=== PATIENT | male | born 1940 | race Caucasian/White ===

== ENCOUNTER 2016-10-20 12:54 | Inpatient (IN) ==
[2016-10-20 14:23] LABS: MANUAL DIFF NEEDED? NO
[2016-10-20 14:31] LABS: BASO% 0.7 % (0.0-0.8); EOS# 0.46 X1000 (0.0-0.7); EOS% 7.6 % (0.0-10.0); HEMATOCRIT 34.3 % (42.0-52.0); HEMOGLOBIN 11.7 g/dL (14.0-18.0); LYMPH# 0.77 X1000 (1.2-3.4); LYMPH% 12.8 % (20.5-51.1); MCH 32.6 PG (27-31); MCHC 34.1 g/dL (33-37); MCV 95.5 FL (81-99); MONO# 0.79 X1000 (0.11-0.59); MONO% 13.1 % (1.7-9.3); MPV 9.3 FL (7.4-10.4); NEUT% 65.8 % (42.2-75.2); PLT 219 X1000 (130-400); RBC 3.59 XMIL (4.7-6.1)
[2016-10-20 14:40] LABS: AGAP 11; ALBUMIN 3.8 g/dL (3.5-5.0); ALKALINE PHOSPHATASE 61 U/L (32-122); BUN 9 mg/dL (8-22); CALCIUM 9.1 mg/dL (8.8-10.2); CHLORIDE 98 mmol/L (98-107); COSMO 270; GOT 12 U/L (10-34); GPT 12 U/L (10-44); POTASSIUM 3.7 mmol/L (3.5-5.1); SODIUM 135 mmol/L (136-145); TCO2 26 mmol/L (25-35); TOTAL BILIRUBIN 0.44 mg/dL (0.20-1.00); TOTAL PROTEIN 7.2 g/dL (6.3-8.3)
[2016-10-20 14:41] LABS: INR 2.81; PROTIME 30.1 Seconds (9.2-11.7); PTT 71.3 Seconds (22.0-36.0)
[2016-10-20] MEDS ORDERED: VITAMIN K 10 MG in NS 50 ML IV ONE (15:50)
--- NOTE | 2016-10-20 15:53 | PROVIDER DOCUMENTATION ---
HPI-Abdominal Pain/GI Problem - General Chief Complaint: GI Bleed Stated Complaint: RECTAL BLEEDING Time Seen by Provider: 10/20/16 14:40 Source: patient, family Allergies/Adverse Reactions: Patient Allergies Allergy/AdvReac Type Severity Reaction Status Date / Time clarithromycin [From Biaxin] Allergy Mild RASH Verified 10/20/16 13:22 Sulfa (Sulfonamide Allergy Mild RASH Verified 10/20/16 13:22 Antibiotics) Home Medications: Home Medication List Medication Instructions Recorded Confirmed Last Taken Type Ascorbate Calcium [Vitamin C] 1,000 mg PO QAM 10/01/16 10/20/16 10/20/16 History Cholecalciferol (Vit D3) [Vitamin 2,000 unit PO QAM 10/01/16 10/20/16 10/20/16 History D] Dexamethasone 2 mg PO BID 10/01/16 10/01/16 10/01/16 09:00 History Esomeprazole [Nexium] 40 mg PO QAM 10/01/16 10/20/16 10/20/16 History Hydromorphone [Dilaudid] 4 mg PO Q8H PRN 10/01/16 10/20/16 10/20/16 History Levothyroxine Sodium [Synthroid] 100 microgm PO QAM 10/01/16 10/20/16 10/20/16 History Mesalamine D.r. [Asacol Hd] 800 mg PO BID 10/01/16 10/20/16 10/20/16 History Multivitamins/Minerals [Centrum 1 each PO QAM 10/01/16 10/20/16 10/20/16 History Silver] Pembrolizumab [Keytruda] 0 mg IV DIRECTED 10/01/16 10/20/16 10/20/16 History Potassium Chloride 10 meq PO QAM 10/01/16 10/20/16 10/20/16 History Warfarin Sodium 5 mg PO QPM 10/01/16 10/20/16 10/20/16 History Donepezil [Aricept] 5 mg PO DAILY 10/20/16 10/20/16 10/20/16 History Hydromorphone HCl [Dilaudid] 4 mg PO Q6H PRN PRN 10/20/16 10/20/16 10/20/16 History Solifenacin Succinate [Vesicare] 5 mg PO DAILY 10/20/16 10/20/16 10/20/16 History - History of Present Illness-ABD Nature of Presenting Problems: patient is a 76 y/o M that presents with lower GI bleed that began 24 hours per family. Family reports initially large red bowel movement 24 hours ago in which the bleeding is starting to slow down. patient was recently placed on Aricept for dementia and stopped it due to side effect being bleeding. He is on Warfin for previous Saddle PE years ago. He is on Chemo Abdominal Pain Onset Location: reports: generalized abdomen Pain Radiation: reports: no radiation Quality of Pain: reports: aching, cramping Severity in ED: reports: moderate Onset/Duration: reports: abrupt, 24 hours ago Timing: reports: still present, gone now Activities at Onset: reports: other (recent new med) Exposure to sick contacts?: No Modifying Factors: improves with: nothing Associated Symptoms: reports: weakness. denies: chest pain, diaphoresis, diarrhea, fever/chills, genitourinary problems, nausea, shortness of breath, vomiting Last BM: this morning Dark Stools Present?: reports: bright red blood Rectal Bleeding: reports: blood mixed with stool Similar Symptoms Previously?: No Recently seen or treated by another doctor?: Yes Review of Systems - Adult - REVIEW OF SYSTEMS - ADULT Constitutional: denies: chills, fever Eyes: reports: no symptoms reported Ears, Nose, Mouth & Throat: reports: no symptoms reported Cardiovascular: denies: chest pain, palpitations, syncope Respiratory: denies: cough, shortness of breath, wheezing Gastrointestinal: reports: abdominal pain, rectal bleeding. denies: diarrhea, nausea, vomiting Genitourinary: denies: dysuria, frequency Musculoskeletal: reports: muscle weakness. denies: muscle aches Integumentary: reports: no symptoms reported Neurological: reports: no symptoms reported Psychiatric: reports: no symptoms reported Endocrine: reports: no symptoms reported Hematologic/Lymphatic: reports: no symptoms reported Allergic/Immunologic: reports: no symptoms reported All Other Systems: Reviewed and Negative Past History - Adult - PAST MEDICAL HISTORY-ADULT Review of Records: reports: Nursing Assessment Review, Medications Reviewed Cardiovascular: reports: HTN, other (irregular heart beat) Respiratory: reports: COPD, cancer (lung cancer), sleep apnea Gastrointestinal: reports: colitis (ulcerative) Other Conditions: reports: other (sleep apnea) - PRIOR SURGERIES/PROCEDURES Surgical/Procedure History: reports: orthopedic (extremity) (Tien shoulder ), back/neck (back Sx), other (radical prostatectomy, sinus Sx) - IMMUNIZATION STATUS Childhood Immunizations: UTD Flu Vaccine: UTD - FAMILY HISTORY Family History: reviewed, not pertinent - SOCIAL HISTORY Smoking: quit greater than 1 year, cigarettes Living Situation: family Physical Exam-General - PHYSICAL EXAM-ADULT Initial Vital Signs Reviewed: Yes - CONSTITUTIONAL General Appearance: alert, other (chronic ill appearing) - EYES Eyes: PERRL/EOMI, pink conjunctivae - HEAD, EARS, NOSE, MOUTH & THROAT HENMT: normocephalic/atraumatic, moist mucous membranes, normal ENT inspection - NECK Neck: full range of motion, normal inspection - RESPIRATORY Respiratory: no respiratory distress, no accessory muscle use, rales (at bases) , other (tocophnea) - CARDIOVASCULAR Cardiovascular: regular rate, rhythm, no edema, no JVD - GASTROINTESTINAL (ABDOMEN) Abdominal Exam: normal bowel sounds, non tender, soft, no organomegaly, no pulsatile mass - MUSCULOSKELETAL Extremity: no pedal edema, no calf tenderness, normal capillary refill - SKIN Integumentary: normal color, warm/dry - PSYCHIATRIC Psych/Mental Status: normal mood/affect, normal thought content, normal thought process, oriented x 3 Progress - PLAN OF CARE/RESULTS Progress/Plan/Lab Results: plan of care-labs, meds - CONSULTS/PCP/HOSPITALIST Notification #1 *Consult/PCP/Hospitalist*: ( 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 Attestation - Scribe Verification/Attestation Scribe:: Jagjit Daniel Acting as Scribe for:: Dariel Heller Scribe documention review:: This chart was documented by a scribe and accurately reflects the service the provider performed and the decisions made by the provider. Physician Attestation - Physician Attestation I, the provider, attest to the following statement:: Dariel Heller Physician documentation Attestation:: This documentation recorded by the scribe accurately reflects the service I personally performed and the decisions made by me.
[2016-10-20] MEDS ORDERED: NS 500 ML ONE (17:32)
[2016-10-20] MEDS ORDERED: DILAUDID PO PRN ×2 (17:44)
[2016-10-20] MEDS ORDERED: ZOFRAN IV PRN (17:44)
[2016-10-20] MEDS: NS 1,000 ML IV SCH (19:07)
--- NOTE | 2016-10-20 20:20 | HISTORY AND PHYSICAL ---
ONCOLOGIST: Dr. Marko Mariano OUTDOOR EDUCATION TEACHER: Tami Rachel MD PRACTICE OR STUDENT TEACHER: Gera London MD CHIEF COMPLAINT: Abdominal pain and rectal bleeding. HISTORY OF PRESENT ILLNESS: Mr. 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 Mariano who has gone through radiation and chemotherapy, he also has a history of abdominal aortic aneurysm status post repair and PE on lifelong Coumadin therapy. He has also recently developed dementia and has started Aricept for that. Currently patient is alert, but he is a poor historian, he has multiple family members at the bedside able to help with history. Today patient had acute onset of abdominal pain, they state he yelled out in pain and subsequently had bowel movements with bright red blood, medium amount per the family. He had another bowel movement with blood later on and he came to the ER for evaluation. He has not recently had any fevers or chills. No cough or congestion. His family does state that he has been declining mentally and physically insofar as he has been more confused and his mobility has decreased. They have even gone so far as to why consider hospice given his history of metastatic disease. Interestingly, the patient had a brain MRI done yesterday which did not show any metastatic lesions to the brain, just diffuse white matter disease. Today, the patient denies any chest pain or shortness of breath. He has no hemoptysis, no lower extremity edema or orthopnea. When he got to the ER, he had labs done which showed mild anemia and an INR of 2.81. Otherwise, nothing acute. The ER ordered vitamin K and 2 units of FFP. After seeing the patient and examining him, he is quite tender in the abdomen, but his belly is soft, but otherwise his exam is benign as well. We have ordered a stat chest/abdomen/pelvis CAT scan with contrast and we are going to admit him to the floor for further evaluation. Please note that the patient's at the bedside has stated that she wishes for him to be a full code. PAST MEDICAL HISTORY: 1. Metastatic lung cancer with metastases to the brain. 2. Dementia. 3. Hypothyroidism. 4. GERD. 5. Hyperlipidemia. 6. COPD. 7. Obstructive sleep apnea. 8. Prostate cancer. PAST SURGICAL HISTORY: Appendectomy, bilateral shoulder arthroplasty, prostatectomy, rhinoplasty, and lung biopsy. SOCIAL HISTORY: Patient lives at home with his . He quit smoking when he was diagnosed with lung cancer 2-3 years ago. He currently does not use alcohol, tobacco or drugs. FAMILY HISTORY: Noncontributory. ALLERGIES: Clarithromycin and sulfa. HOME MEDICATIONS: Vitamin C 1000 mg p.o. a.m. Vitamin D 2000 units p.o. daily. Aricept 5 mg daily. Nexium 40 mg a.m. Dilaudid 4 mg every 8 hours as needed. Dilaudid 4 mg every 6 hours as needed. Synthroid 100 mcg p.o. daily. Asacol 800 mg p.o. b.i.d. Multivitamin daily. Keytruda IV as directed. Potassium chloride 10 mEq p.o. a.m. VESIcare 5 mg daily, Coumadin 5 mg q.p.m. REVIEW OF SYSTEMS: Ten point review of systems obtained and found to be negative with the exception of the HPI. PHYSICAL EXAMINATION: VITAL SIGNS: Blood pressure 152/80, heart rate is 86, respiratory rate 16, O2 saturation 96% on room air. Temperature is 98.1 degrees. GENERAL: This is a chronically ill and elderly appearing, 76-year-old, male, lying in hospital bed in no acute distress. NEUROLOGIC: The patient is awake and alert. He answers orientation questions correctly with the exception of the year which he stated was 2015. He follows commands without focal deficits. HEENT: Head is atraumatic, normocephalic. Pupils equal, round, reactive to light. Oral mucosa is a bit dry. Trachea is midline. There is no JVD or carotid bruits. CHEST: Decreased throughout with perhaps some rhonchi in the mid right lung. GI: Diffusely tender mostly in the right lower and left lower quadrants. Bowel sounds are hypoactive and belly is overall soft and nondistended. EXTREMITIES: Without edema, clubbing or cyanosis. Pulses are palpable, but diminished bilaterally. DIAGNOSTIC DATA: None. He had a brain MRI yesterday which showed no metastatic lesions in the brain. Chronic white matter changes. LABORATORY DATA: WBC 6.03, hemoglobin 11.7, hematocrit 34.3, platelet count 219,000, PT 30.1, INR 2.81, PTT 71.3. Sodium 135, potassium 3.7, chloride 98, CO2 26, anion gap 11, BUN 9, creatinine 0.8, glucose 116. Calcium 9.1. Bilirubin 0.44. AST 12. ALT 12. Alkaline phosphatase 61, albumin 3.8. ASSESSMENT AND PLAN: 1. Painful gastrointestinal bleeding: We are going to get a stat abdomen and pelvis computed tomography as well as a chest computed tomography. We will hold his Coumadin and consult with Dr. Rachel. He has been given vitamin K and fresh frozen plasma in the emergency room. We will monitor his coagulase status carefully. In the meantime, we will keep him nothing per oral, and add intravenous fluids. 2. Normocytic anemia: Likely chronic possibly with acute blood loss superimposed. We will check iron studies in the morning and treat appropriately, we have consulted Hematology/Oncology. 3. History of pulmonary embolus: The patient's international normalized ratio has been reversed in the emergency room secondary to active bleeding. We will monitor international normalized ratio daily and discuss with Hematology/Oncology and Gastroenterology when he is able, if at all to take anticoagulants. 4. History of abdominal aortic aneurysm: Currently his blood pressure is stable. We will keep it that way with p.r.n. medications if needed. We are going to check a computed tomography of the abdomen and pelvis and chest to ensure there has been no damage to his aorta or aortic stent. 5. Metastatic lung cancer: We are checking a computed tomography of the chest and consulting with Hematology/Oncology. He is Keytruda, but this is done outpatient and we will defer any of those types of treatments to Hematology/Oncology. 6. Dementia: We are going to hold his Aricept for now, brain magnetic resonance imaging does not show anything acute. 7. Gastroesophageal reflux disease. Continue his proton pump inhibitor. 8. Gastrointestinal prophylaxis with proton pump inhibitor and deep vein thrombosis prophylaxis with TEDs and Sequential Compression Devices given gastrointestinal bleeding. Further recommendations to follow. Dictated by NURYS Hoyt for Arya Mccullough MD
--- NOTE | 2016-10-20 22:22 | Diag Imaging Result Document ---
PROCEDURE NAME: THORAX/ABDOMEN/PELVIS - 10/20/2016 STUDY: CT chest, abdomen and pelvis with intravenous contrast. PROTOCOL: Dose reduction protocol. COMPARISON: Compared to 07/01/2016. CHEST: No pleural effusions. No cardiomegaly. No thoracic aortic aneurysm or dissection. There is at least moderate atherosclerosis. There are several calcified left hilar lymph nodes and scattered granuloma. Fibrosis and bronchiectasis are found in the right lower lobe. Moderate emphysematous changes. There is a tiny infiltrate in the right upper lobe which has developed since the prior exam. Small nodular density anteriorly in the right lung on image 55 is unchanged. IMPRESSION: Development of a tiny infiltrate in the right upper lobe, otherwise stable CT of the chest. ABDOMEN AND PELVIS WITH ORAL AND INTRAVENOUS CONTRAST: COMPARISON: Compared to 07/01/2016. There is fatty infiltration of the liver. No inflammation about the gallbladder. No calcified stones. Normal spleen and adrenal glands. No focal pancreatic abnormality. Normal enhancement of the kidneys. No hydronephrosis. Prior aneurysm surgery to the aorta and iliac arteries. This is unchanged from the prior exam. There are small paraaortic lymph nodes. There is colonic wall thickening most pronounced in the mid and distal transverse colon, descending colon, and sigmoid colon. Adjacent inflammation is present in addition to several scattered diverticula. No bowel obstruction. The uterus has been removed. No pelvic mass. The urinary bladder is moderately distended and appears normal. IMPRESSION: 1. Development of colitis since the prior exam. No abscess. No free air. 2. I do not believe there has been a significant change in the size of the aorta following aneurysm repair. A preliminary report was given at 8:59 p.m.
[2016-10-21] MEDS ORDERED: PRILOSEC PO SCH (07:00)
[2016-10-21 07:06] LABS: HEMATOCRIT 33.7 % (42.0-52.0); HEMOGLOBIN 11.5 g/dL (14.0-18.0); MCH 32.2 PG (27-31); MCHC 34.1 g/dL (33-37); MCV 94.4 FL (81-99); MPV 8.4 FL (7.4-10.4); RBC 3.57 XMIL (4.7-6.1)
[2016-10-21 07:24] LABS: INR 1.26; PROTIME 13.4 Seconds (9.2-11.7)
[2016-10-21 07:30] LABS: AGAP 14; BUN 6 mg/dL (8-22); CALCIUM 9.2 mg/dL (8.8-10.2); CHLORIDE 98 mmol/L (98-107); COSMO 272; IRON SATURATION 28 %; POTASSIUM 3.3 mmol/L (3.5-5.1); SODIUM 137 mmol/L (136-145); TCO2 25 mmol/L (25-35); TIBC 207 ug/dL; TOTAL IRON 58 ug/dL (53-167); UNBOUND IRON 149 ug/dL (112-346)
[2016-10-21] MEDS: POTASSIUM CHLORIDE 20 MEQ/SWI 100 ML IV SCH ×2 (08:23→10:46)
[2016-10-21] MEDS ORDERED: SYNTHROID PO SCH (09:00)
[2016-10-21] MEDS ORDERED: SYNTHROID IV ONE (11:38)
[2016-10-21] MEDS ORDERED: SODIUM CHLORIDE 0.9% INJ ONE (11:38)
[2016-10-21] MEDS: SODIUM CHLORIDE 0.9% INJ SCH (12:25)
[2016-10-21] MEDS: DILAUDID IV PRN (12:32)
[2016-10-21] MEDS: PROTONIX IV SCH ×2 (12:35→22:29)
[2016-10-21] MEDS: NS 1,000 ML IV SCH (12:38)
--- NOTE | 2016-10-21 15:45 | PROGRESS NOTE ---
DATE: 10/21/2016 SUBJECTIVE: This patient is still complaining of lower abdominal pain. He has been having nausea and vomiting. He is still having bowel movement, but with blood patch compared with the admission. This is better. GI department and Hematology/Oncology Department evaluated this patient. I will follow their recommendations. I have change some of his p.o. medications to IV medication, because he has been having vomiting. This patient is still NPO and getting IV fluids. OBJECTIVE: Vital Signs: Temperature 97.4 degrees, pulse 83, respiratory rate 16, blood pressure 131/71, oxygen saturation 98 on room air. HEENT: Head normocephalic. No trauma. Pupils equal, round, and reactive to light and accommodation. Neck: Supple. No jugular venous distention. Central trachea. Chest: Decreased breath sounds globally. Mild rales on the right side base. Cardiovascular: Regular rate and rhythm. No murmurs. Abdomen: Soft. Generalized tenderness to palpation, but mostly at the level of the lower quadrant. Positive bowel sounds. Extremities: No edema. No clubbing. No cyanosis. Pulses are palpable bilaterally. LABORATORY: WBC 5.5, hemoglobin 11.5, hematocrit 33.7, platelets 209,000. Sodium 137, potassium 3.3, chloride 98, bicarbonate 25, BUN 6, creatinine 0.7. Glucose 101. Calcium 9.2. ASSESSMENT AND PLAN: 1. Painful gastrointestinal bleed, will be holding the warfarin. Gastroenterology Department is following this patient already. The INR has normalized. I will continue with the IV fluids. I will follow the recommendation of Gastroenterology Department. 2. Metastatic lung cancer. Hematology-Oncology is on board. He has been Keytruda as an outpatient. I will defer those types of treatments to Hematology/Oncology. 3. Normocytic anemia. Will check folate and B12 and this is higher than normal. This is likely related to chronic disease. 4. History of pulmonary embolism. This patient has been on warfarin, but we stopped it because of the gastrointestinal bleed. We will continue to monitor. 5. History of abdominal aortic aneurysm. At this moment the blood pressure is stable. We will continue with the same treatment for now. 6. Dementia. Apparently this condition has been getting worse. Brain MRI did not show any acute disease. We will continue to monitor. 7. Gastroesophageal reflux disease. I changed his p.o. medications to IV medication. Deep venous thrombosis prophylaxis. We will continue with Blaise curtis and SCDs, given his gastrointestinal bleeding. Further recommendations to follow. 8. Hypothyroidism. This patient has been getting Synthroid p.o. 100 mcg daily. I will switch it to IV 50 mcg daily.
[2016-10-21] MEDS ORDERED: MIRALAX PO ONE (21:43)
[2016-10-21] MEDS ORDERED: LOVENOX SUBQ ONE (21:44)
[2016-10-21] MEDS: SOLU-MEDROL IV SCH (21:57)
[2016-10-21] MEDS ORDERED: DULCOLAX PO ONE (22:00)
[2016-10-21 22:54] LABS: URINE SOURCE CATH
[2016-10-21 23:05] LABS: BILIRUBIN URINE NEGATIVE (NEGATIVE); BLOOD URINE NEGATIVE (NEGATIVE); CLARITY CLEAR (CLEAR); COLOR YELLOW; GLUCOSE URINE NEGATIVE (NEGATIVE); LEUKOCYTES URINE NEGATIVE (NEGATIVE); NITRITE URINE NEGATIVE (NEGATIVE); PROTEIN URINE 30 mg/dL (NEGATIVE); URINE CULTURE NEEDED? NO; URINE EPITHELIAL CELLS <10 /HPF (<10); URINE RBC <10 /HPF (<10); URINE WBC <10 /HPF (<10); UROBILINOGEN URINE 0.2 EU/dL (0.2-1.0)
[2016-10-22] MEDS: PROTONIX IV SCH ×3 (00:14→10:28)
[2016-10-22] MEDS: SODIUM CHLORIDE 0.9% INJ SCH ×2 (00:14→10:28)
[2016-10-22] MEDS ORDERED: DULCOLAX PO ONE (02:00)
[2016-10-22] MEDS: SYNTHROID IV SCH (06:25)
[2016-10-22 07:22] LABS: BASO% 0.6 % (0.0-0.8); EOS# 0.01 X1000 (0.0-0.7); EOS% 0.2 % (0.0-10.0); HEMATOCRIT 34.9 % (42.0-52.0); IMM GRAN# 0.04 X1000 (0.0-0.04); IMM GRAN% 0.7 % (0.0-0.5); LYMPH# 0.53 X1000 (1.2-3.4); LYMPH% 9.8 % (20.5-51.1); MANUAL DIFF NEEDED? YES; MCH 32.5 PG (27-31); MCHC 34.4 g/dL (33-37); MCV 94.6 FL (81-99); MONO# 0.08 X1000 (0.11-0.59); MONO% 1.5 % (1.7-9.3); MPV 9.4 FL (7.4-10.4); NEUT% 87.2 % (42.2-75.2); PLT 223 X1000 (130-400); RBC 3.69 XMIL (4.7-6.1)
[2016-10-22 07:32] LABS: AGAP 13; BUN 9 mg/dL (8-22); CALCIUM 9.2 mg/dL (8.8-10.2); CHLORIDE 98 mmol/L (98-107); COSMO 269; POTASSIUM 4.1 mmol/L (3.5-5.1); SODIUM 134 mmol/L (136-145); TCO2 23 mmol/L (25-35)
[2016-10-22 07:48] LABS: INR 1.13
[2016-10-22 08:12] LABS: BANDS 16 % (0-1); LYMPHS 6 % (21-51); MONO 1 % (1-9)
[2016-10-22 08:13] LABS: LARGE PLATELETS OCCASIONAL
[2016-10-22] MEDS: NS 1,000 ML IV SCH ×2 (10:27→17:01)
[2016-10-22] MEDS: SOLU-MEDROL IV SCH ×2 (10:28→21:43)
--- NOTE | 2016-10-22 11:53 | PROGRESS NOTE ---
DATE: 10/22/2016 SUBJECTIVE: This patient is still about the same. He is still complaining of lower abdominal pain. He is scheduled today for an endoscopy. As per the , he has been having still bloody BMs. He is still having generalized weakness and he is still complaining of abdominal pain. OBJECTIVE: Vital Signs: Temperature 97.8 degrees, pulse 86, respiratory rate 16, blood pressure 144/81, oxygen saturation 99 on room air. HEENT: Head normocephalic. No trauma. PERRLA. Neck: Supple. No JVD. No masses. Central trachea. Chest: Decreased breath sounds globally. Mild rales in the right side base. Cardiovascular: RRR. No murmurs. Abdomen: Soft. Generalized tenderness to palpation but mostly at the level of the lower quadrant. Positive bowel sounds. Extremities: No edema, clubbing, or cyanosis. Pulses are palpable bilaterally. LABORATORY: WBC 5.4, hemoglobin 12, hematocrit 34.9, platelet 223,000. Sodium 134, potassium 4.1, chloride 98, bicarbonate 23, BUN 9, creatinine 0.8, glucose 127, calcium 9.2, magnesium 1.8. ASSESSMENT AND PLAN: 1. Painful gastrointestinal bleed. Warfarin has been held. Gastroenterology department is planning to scope this patient today. His INR has normalized. Will continue with IV fluids. We will continue following the recommendations of the gastroenterology department. He is still complaining of abdominal pain and bloody BMs. 2. Metastatic lung cancer. Hematology/oncology is on board. He has been on Keytruda as an outpatient. I will give her this treatment to hematology/oncology department. 3. History of ulcerative colitis. This patient is on steroids. We will continue to monitor. We will continue following the recommendations of gastroenterology department. 4. History of pulmonary embolism. This patient has been on warfarin but we stopped it because of the GI bleed. We will continue to monitor. 5. History of abdominal aortic aneurysm. At this moment his blood pressure is stable. We will continue to monitor and treatment. 6. Dementia. Apparently this condition has been getting worse. We will continue to monitor. 7. Gastroesophageal reflux disease. I will continue with PPI IV. 8. Hypothyroidism. We will continue with IV Synthroid.
[2016-10-22] MEDS ORDERED: FLEET ENEMA PR ONE (12:03)
[2016-10-22] MEDS: DILAUDID IV PRN (12:24)
[2016-10-22] MEDS ORDERED: MYLICON DROPS (DOSE) MISC ONE (16:06)
--- NOTE | 2016-10-22 16:24 | CONSULTATION ---
DATE OF CONSULTATION: 10/21/2016 ADMITTING PHYSICIAN: Arya Mccullough M.D. REQUESTING PHYSICIAN: Arya Mccullough M.D. PRIMARY ONCOLOGIST: Marko Mariano M.D. SALES REPRESENTATIVE METALS: Tami Rachel M.D. AUTO AIR CONDITIONING APPRENTICE: Gera London M.D. CHIEF COMPLAINT: Acute GI bleed. HISTORY OF PRESENT ILLNESS: Mr. Mota is a 76-year-old, male with a history of metastatic small-cell lung cancer with brain involvement who is status post radiation therapy as well as chemotherapy with Keytruda. The patient just finished cycle 7:8 of Keytruda on October 06. The patient was admitted to [facility] secondary to acute GI blood loss with abdominal pain. The patient's family does report that he has had significant deconditioning lately with significant weakness and altered mental status. PAST MEDICAL HISTORY: 1. Metastatic lung cancer with brain involvement. 2. Dementia. 3. Hypothyroidism. 4. Gastroesophageal reflux disease. 5. Hyperlipidemia. 6. COPD. 7. Obstructive sleep apnea. 8. Prostate cancer. PAST SURGICAL HISTORY: 1. Appendectomy. 2. Bilateral shoulder arthroplasty. 3. Prostatectomy. 4. Rhinoplasty. 5. Lung biopsy. FAMILY HISTORY: Negative for any hematologic or oncologic problem. SOCIAL HISTORY: The patient quit smoking 2-3 years ago. He does not use alcohol or illicit drugs. MEDICATIONS ON ADMISSION: 1. Vitamin C. 2. Vitamin D. 3. Aricept. 4. Nexium. 5. Dilaudid. 6. Synthroid. 7. Asacol. 8. Multivitamins. 9. Keytruda. 10. Potassium chloride. 11. VESIcare. 12. Coumadin. ALLERGIES: Clarithromycin and sulfa. REVIEW OF SYSTEMS: A complete review of systems was obtained and is negative except as mentioned in HPI. PHYSICAL EXAMINATION: Mr. Mota is a very pleasant, 76-year-old, male, lying supine in bed, somewhat somnolent and slightly confused.Vital Signs: Temperature 97.4 degrees, blood pressure 131/71, heart rate 83, respirations 16, O2 saturation 98% on room air. HEENT: Normocephalic, atraumatic. Mucous membranes are pale and moist. Sclerae is anicteric. Extraocular movements intact. Neck: Supple. Lungs: Clear to auscultation bilaterally. Chest expansion is equal bilaterally. Cardiovascular: S1, S2 is heard without murmur, rub or gallop. Abdomen: Soft, slightly distended, tender in the epigastric region. Bowel sounds are positive in all quadrants. No rebound or guarding noted. Extremities: Without clubbing, cyanosis, or edema. Dermatologic: No rashes, bruises or lesions. Neurologic: The patient is somnolent and oriented x2. He has no focal deficit at this time. LABORATORY DATA: Hemoglobin 11.5, hematocrit 33.7, white blood cell count 5.50, platelets 209,000, INR is 1.26, PT is 13.4, sodium 137, potassium 3.3, chloride 98, CO2 is 25, BUN 6, creatinine 0.7, glucose is 101, iron saturation is 28%, MCV 94.4, MCHC 34.1, B12 is 18 72, TSH is 17.65. IMAGING STUDIES: CT of the chest, abdomen and pelvis reveals transverse colitis with a right upper lobe infiltrate. ASSESSMENT: 1. Metastatic lung cancer to the brain status post cycle 7, day 8 of Keytruda on 10/06/2016. The patient's next dose is due October 27. We will hold chemotherapy until the patient's acute illness has past. 2. GI bleed is related to transverse colitis. The patient does continue to have bright red blood per rectum. Hemoglobin currently is 11.5 status post packed red blood cell transfusion. Dr. Rachel has been consulted, EGD and colonoscopy are planned. 3. Altered mental status in patient with metastatic lung cancer to the brain status post radiation. Additionally the patient does have diagnosed dementia. Altered mental status has been worsening recently. 4. Hypokalemia. We agree with potassium replacement per protocol. 5. We will follow along and make further recommendations pending outcome. The above reflects the history, examination, assessment and plan with Dr. Mariano. We appreciate this consultation. Dictated by NURYS Lawson for Marko Mariano MD
[2016-10-22] MEDS ORDERED: DIPRIVAN 1% ONE (16:53)
[2016-10-22] MEDS ORDERED: LR 1,000 ML ONE (17:04)
[2016-10-22] MEDS ORDERED: ANESTHESIA PB SET 88 IN 5742 ONE (17:04)
[2016-10-22] MEDS ORDERED: PROTONIX 80 MG in NS 80 ML IV ONE (18:30)
[2016-10-22] MEDS: PROTONIX 80 MG in NS 80 ML IV SCH (21:42)
[2016-10-22] MEDS: CANASA SUPP PR SCH (21:42)
[2016-10-22] MEDS: CARAFATE LIQUID PO SCH (21:42)
[2016-10-23] MEDS: NS 1,000 ML IV SCH ×2 (03:29→18:34)
[2016-10-23] MEDS: CARAFATE LIQUID PO SCH ×4 (03:29→20:42)
[2016-10-23] MEDS: SODIUM CHLORIDE 0.9% INJ SCH ×3 (03:29→22:16)
[2016-10-23] MEDS: SYNTHROID IV SCH (06:20)
[2016-10-23 06:56] LABS: HEMATOCRIT 32.2 % (42.0-52.0); HEMOGLOBIN 11.3 g/dL (14.0-18.0); MCH 32.5 PG (27-31); MCHC 35.1 g/dL (33-37); MCV 92.5 FL (81-99); MPV 8.7 FL (7.4-10.4); RBC 3.48 XMIL (4.7-6.1)
[2016-10-23 07:02] LABS: AGAP 14; BUN 14 mg/dL (8-22); CALCIUM 9.3 mg/dL (8.8-10.2); CHLORIDE 99 mmol/L (98-107); COSMO 273; SODIUM 135 mmol/L (136-145); TCO2 22 mmol/L (25-35)
[2016-10-23] MEDS: LOVENOX SUBQ SCH ×2 (10:30→20:43)
[2016-10-23] MEDS: PROTONIX 80 MG in NS 80 ML IV SCH ×2 (10:30→18:34)
[2016-10-23] MEDS: SOLU-MEDROL IV SCH ×2 (10:31→22:16)
--- NOTE | 2016-10-23 16:46 | PROGRESS NOTE ---
DATE: 10/23/2016 SUBJECTIVE: This patient states that he is feeling a little bit better, he is tolerating the diet better, he is still complaining of diffuse abdominal pain. He denies nausea and vomiting and he denies rectal bleed. OBJECTIVE: Vital Signs: Temperature 98 degrees, pulse 67, blood pressure 138/ 69, O2 saturation 97 on room air. HEENT: Head normocephalic. No trauma. PERRLA. Neck: Supple. No JVD. No masses. Central trachea. Chest: Clear to auscultation. No wheezing. No rales. Decreased breath sounds globally. Cardiovascular: RRR. No murmurs. Abdomen: Soft, generalized tenderness to palpation but mostly at the level of the lower quadrants. Positive bowel sounds. Extremities: No edema. No clubbing. No cyanosis. LABORATORY: WBC 7, hemoglobin 11.3, hematocrit 32.2, platelets 242,000. Sodium 135, potassium 4, chloride 99, bicarbonate 22, BUN 14, creatinine 0.8, glucose 137, calcium 9.3, magnesium 1.7. ASSESSMENT AND PLAN: 1. Painful gastrointestinal bleed. This patient is status post upper endoscopy and sigmoidoscopy. EGD showed multiple arterial venous malformations, gastritis , severe duodenitis, ulcers and at the level of the colon showed ulcerative colitis, colon polyp, diverticulosis, diverticula, have pus in them, multiple small polyps. 2. Metastatic lung cancer. Hematology/Oncology on board. He has been on Keytruda as an outpatient. The treatment is going to be held and Hematology/Oncology will restart his treatment as an outpatient after reevaluation. 3. Ulcerative colitis. This patient just has been scoped. He is on steroids. We will monitor. We will continue following the recommendation of gastroenterology department. 4. History of pulmonary embolism. We are going to restart his anticoagulation, today I will start with his warfarin again. 5. History of abdominal aortic aneurysm. At this moment his blood pressure is stable. We will continue to monitor and treatment. 6. Dementia. Apparently this condition has been getting worse. We will continue to monitor. 7. Gastroesophageal reflux disease. Continue with proton pump inhibitor. 8. Hypothyroidism. I will continue with IV Synthroid. [facility]
[2016-10-23] MEDS: COUMADIN PO SCH (20:43)
[2016-10-23] MEDS: CANASA SUPP PR SCH (20:45)
[2016-10-23] MEDS: MIRALAX PO SCH (22:16)
[2016-10-24] MEDS: CARAFATE LIQUID PO SCH ×4 (02:08→20:45)
[2016-10-24] MEDS: PROTONIX 80 MG in NS 80 ML IV SCH ×2 (04:54→16:39)
[2016-10-24] MEDS: NS 1,000 ML IV SCH ×3 (06:19→20:47)
[2016-10-24] MEDS: SYNTHROID IV SCH (06:20)
[2016-10-24] MEDS: SODIUM CHLORIDE 0.9% INJ PRN (06:20)
[2016-10-24 06:49] LABS: MANUAL DIFF NEEDED? NO
[2016-10-24 07:15] LABS: BASO% 0.1 % (0.0-0.8); EOS# 0.02 X1000 (0.0-0.7); EOS% 0.3 % (0.0-10.0); HEMATOCRIT 32.8 % (42.0-52.0); HEMOGLOBIN 11.2 g/dL (14.0-18.0); IMM GRAN# 0.09 X1000 (0.0-0.04); IMM GRAN% 1.3 % (0.0-0.5); LYMPH# 0.63 X1000 (1.2-3.4); LYMPH% 8.8 % (20.5-51.1); MCHC 34.1 g/dL (33-37); MCV 93.7 FL (81-99); MONO# 0.37 X1000 (0.11-0.59); MONO% 5.2 % (1.7-9.3); MPV 8.9 FL (7.4-10.4); NEUT% 84.3 % (42.2-75.2); PLT 231 X1000 (130-400)
[2016-10-24 07:16] LABS: INR 1.16; PROTIME 12.3 Seconds (9.2-11.7)
[2016-10-24 07:31] LABS: AGAP 13; BUN 14 mg/dL (8-22); CALCIUM 9.2 mg/dL (8.8-10.2); CHLORIDE 101 mmol/L (98-107); COSMO 280; POTASSIUM 4.1 mmol/L (3.5-5.1); SODIUM 139 mmol/L (136-145); TCO2 25 mmol/L (25-35)
[2016-10-24] MEDS: SOLU-MEDROL IV SCH ×2 (13:07→21:07)
[2016-10-24] MEDS: LOVENOX SUBQ SCH ×2 (13:07→20:46)
[2016-10-24] MEDS: SODIUM CHLORIDE 0.9% INJ SCH (13:07)
[2016-10-24] MEDS: MIRALAX PO SCH (13:08)
--- NOTE | 2016-10-24 13:58 | PROGRESS NOTE ---
DATE: 10/24/2016 SUBJECTIVE: This patient states that he is feeling better. He is tolerating diet better. He is still complaining of diffuse abdominal pain, but compared with admission this has been improving. He denies nausea and vomiting or rectal bleed. Apparently, today in the morning he had an episode of wheezing, but at the moment of physical exam it was not there. OBJECTIVE: Vital signs: Temperature 98.2, pulse 72, respiratory rate 16, blood pressure 151/78, oxygen saturation 99 on room air. HEENT: Head normocephalic, no trauma, CAITLYN. Neck: Supple, no JVD, no masses, central trachea. Chest: Bilateral rales mostly at the bases and mid lung, no wheezing, decreased breath sounds globally. Cardiovascular: RRR, no murmurs. Abdomen: Soft, generalized tenderness to palpation but mostly at the level of the lower quadrants. Positive bowel sounds. Extremities: No edema, no clubbing, no cyanosis. Neurological: The patient is alert. He is oriented x3 right now. LABORATORY: WBC 7.1, hemoglobin 11.2, hematocrit 32.8, platelets 231. Sodium 139, potassium 4.1, chloride 101, bicarbonate 25, BUN 14, creatinine 0.9, glucose 133, calcium 9.2. ASSESSMENT AND PLAN: 1. Painful gastrointestinal bleed. This patient is status post upper endoscopy and sigmoidoscopy. EGD showed multiple AV malformation, gastritis, severe duodenitis, ulcers, and at the level of the colon showed ulcerative colitis, colon polyps, diverticulosis, diverticula that have pus in them, multiple small polyps, as well. 2. Metastatic lung cancer. Hematology/oncology on board. He has been on Keytruda as an outpatient. The treatment is going to be held, and hematology/oncology will restart the treatment as an outpatient after reevaluation. 3. Ulcerative colitis. This patient already has been scoped, and he is receiving Solu-Medrol 40 IV q.12 h. I will continue with the same management. 4. History of pulmonary embolism. We restarted the anticoagulation therapy yesterday, will continue to monitor the INR and warfarin. 5. History of abdominal aortic aneurysm. At the moment, the blood pressure is stable. Will continue to monitor. 6. Dementia. Apparently, this condition has been getting worse on and off. Will continue to monitor. 7. Gastroesophageal reflux disease. Continue with proton pump inhibitors. 8. Hypothyroidism. I will continue with IV Synthroid for now.
[2016-10-24] MEDS: COUMADIN PO SCH (20:46)
[2016-10-24] MEDS: CANASA SUPP PR SCH (20:54)
[2016-10-25] MEDS: CARAFATE LIQUID PO SCH ×4 (01:04→20:34)
[2016-10-25] MEDS: DILAUDID IV PRN (01:04)
[2016-10-25] MEDS: PROTONIX 80 MG in NS 80 ML IV SCH ×2 (01:08→12:46)
[2016-10-25] MEDS: SODIUM CHLORIDE 0.9% INJ SCH ×4 (02:56→22:20)
[2016-10-25] MEDS: SYNTHROID IV SCH (06:27)
[2016-10-25] MEDS: SODIUM CHLORIDE 0.9% INJ PRN (06:28)
[2016-10-25 06:55] LABS: MANUAL DIFF NEEDED? NO
[2016-10-25 07:05] LABS: BASO% 0.1 % (0.0-0.8); HEMATOCRIT 34.3 % (42.0-52.0); HEMOGLOBIN 11.7 g/dL (14.0-18.0); IMM GRAN# 0.13 X1000 (0.0-0.04); IMM GRAN% 1.8 % (0.0-0.5); LYMPH# 0.84 X1000 (1.2-3.4); LYMPH% 11.5 % (20.5-51.1); MCHC 34.1 g/dL (33-37); MCV 93.7 FL (81-99); MONO# 0.53 X1000 (0.11-0.59); MONO% 7.3 % (1.7-9.3); MPV 8.6 FL (7.4-10.4); NEUT% 79.3 % (42.2-75.2); PLT 231 X1000 (130-400); RBC 3.66 XMIL (4.7-6.1)
[2016-10-25 07:08] LABS: INR 1.3; PROTIME 13.8 Seconds (9.2-11.7)
[2016-10-25 07:16] LABS: AGAP 12; BUN 15 mg/dL (8-22); CALCIUM 9.2 mg/dL (8.8-10.2); CHLORIDE 97 mmol/L (98-107); COSMO 274; POTASSIUM 4.4 mmol/L (3.5-5.1); SODIUM 136 mmol/L (136-145); TCO2 27 mmol/L (25-35)
[2016-10-25] MEDS: SOLU-MEDROL IV SCH ×2 (09:04→22:20)
[2016-10-25] MEDS: LOVENOX SUBQ SCH ×2 (09:04→20:35)
[2016-10-25] MEDS: MIRALAX PO SCH (09:04)
[2016-10-25] MEDS: NS 1,000 ML IV SCH ×2 (09:28→23:10)
[2016-10-25] MEDS ORDERED: TYLENOL PO ONE (12:23)
[2016-10-25] MEDS ORDERED: TYLENOL PO PRN (15:52)
--- NOTE | 2016-10-25 16:32 | PROGRESS NOTE ---
DATE: 10/25/2016 SUBJECTIVE: This patient states that he is feeling better. He is tolerating diet better. He is still complaining of diffuse abdominal pain but compared with admission, he is much better. He denies nausea, vomiting, diarrhea, constipation. No rectal bleed. Apparently in the morning he had an episode of headache and high blood pressure that resolved after treatment. This patient has also generalized weakness and physical therapy is on board. But, probably this patient will need to be discharged to a rehab center. OBJECTIVE: Vital Signs: Temperature 97.4 degrees, pulse 77, respiratory rate 15, blood pressure 172/102, oxygen saturation 96 on room air. HEENT: Head normocephalic. No trauma. PERRLA. Neck: Supple. No JVD. Central trachea. Chest: Bilateral rales, mostly at the bases. No wheezing. Decreased breath sounds globally. Cardiovascular: RRR. No murmurs. Abdomen: Soft. Generalized tenderness to palpation but mostly at the level of the lower quadrant. Positive bowel sounds. Extremities: No edema. No clubbing. No cyanosis. Neurological: The patient is alert. He is oriented x3 right now. LABORATORY: WBC 7.3, hemoglobin 11.7, hematocrit 34.3, platelets 231,000. Sodium 136, potassium 4.4, chloride 97, bicarbonate 27, BUN 15, creatinine 0.8, glucose 114, calcium 9.2. ASSESSMENT AND PLAN: 1. Painful gastrointestinal bleed. This patient is status post upper endoscopy and sigmoidoscopy. EGD showed multiple AV malformation, gastritis, duodenitis, ulcers at the level of the colon. Showed ulcerative colitis, colon polyps, diverticulosis, and diverticula that have pus in them, multiple small polyps as well. The abdominal pain is getting better. No more bleed. We will continue to monitor. 2. Metastatic lung cancer. Hematology/oncology on board. He has been on Keytruda as an outpatient. The treatment is going to be held and hematology/oncology will restart the treatment as an outpatient after reevaluation. 3. Ulcerative colitis. This patient has been scoped. He is on steroids. We will continue with the same management. 4. History of pulmonary embolism. We restarted the anticoagulation therapy 2 days ago. We will continue monitor the INR and giving him his warfarin. 5. History of abdominal aortic aneurysm. In the morning the blood pressure was high but was controlled later on. We will continue to monitor. 6. Dementia. Apparently this condition has been getting worse and has been on and off. We will continue to monitor. 7. Gastroesophageal reflux disease. Continue with proton pump inhibitors. 8. Hypothyroidism. I will continue for now with IV Synthroid.
[2016-10-25] MEDS: COUMADIN PO SCH (20:34)
[2016-10-25] MEDS: CANASA SUPP PR SCH (20:35)
[2016-10-25] MEDS: PROTONIX IV SCH (20:36)
[2016-10-26] MEDS: CARAFATE LIQUID PO SCH ×4 (02:28→21:22)
--- NOTE | 2016-10-26 04:36 | OPERATIVE NOTE ---
PROCEDURE DATE: 10/22/2016 REFERRING PHYSICIAN: Arya Mccullough MD PRIMARY PROVIDER: Marko Mariano MD INDICATIONS FOR PROCEDURE: 1. Epigastric pain. 2. Gastroesophageal reflux disease. 3. Rectal bleeding. 4. History of ulcerative colitis. PROCEDURE PERFORMED: Esophagogastroduodenoscopy with biopsy. CONSENT: Informed consent was obtained from the patient prior to the procedure. The risks, benefits, and alternatives were discussed. MEDICATION: The patient received monitored anesthesia care. PERFORMING PHYSICIAN: Tami Rachel MD ASSISTANTS: 1. SREEDHAR Morrissey. 2. Elvira Fuchs RN. 3. Wilson Gaston CRNA. 4. Daniel Cheney MD (Anesthesia). COMPLICATIONS: There were no complications. ESTIMATED BLOOD LOSS: Less than 2 mL. SPECIMENS REMOVED: 1. Duodenal biopsies. 2. Gastric biopsies. FINDINGS: After sedation was achieved, the upper endoscope was inserted to the second portion of the duodenum. The hypopharynx appeared endoscopically normal. In the tubular esophagus, there were a few benign-appearing polyps that were flat, that remained intact, as there were less than 5 mm. The GE junction was measured at 45 cm from the incisors. It appeared grossly normal. There is no evidence of Fox's esophagus or esophageal varices. In the gastric lumen, there was severe erosive gastritis with multiple nonbleeding AVMs. 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 There were also multiple superficial ulcers in the antrum. On retroflex view, there was again the erosive changes. There was no evidence of gastric varices. On forward view, the pylorus appeared inflamed. In the first, second, and third portion of the duodenum, there was severe inflammation consistent with duodenitis. Biopsies were taken. The lumen was then decompressed and the scope was removed without incident. IMPRESSION: 1. Benign-appearing esophageal polyps. 2. Multiple nonbleeding gastric arteriovenous malformations. 3. Severe erosive gastritis. 4. 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 5. Multiple superficial antral ulcers. 6. Inflamed pylorus. 7. Severe erosive duodenitis. RECOMMENDATIONS: 1. These changes may be related Keytruda. 2. Change his Protonix to a Protonix drip for 72 hours then resume Protonix 40 mg IV q.12 hours. 3. I will add Carafate suspension 1 gram p.o. 4 times a day. He should remain on this for a total of 12 weeks. At the time of discharge, please transition to Carafate tablets 1 gram 4 times a day. The tablets may be crushed and mixed in applesauce or dissolved in small amount of water. 4. Continue supportive care. 5. Await biopsy results. 6. Proceed with colonoscopy versus flexible sigmoidoscopy as previously scheduled.
--- NOTE | 2016-10-26 04:37 | CONSULTATION ---
DATE OF CONSULTATION: 10/21/2016 REFERRING PHYSICIAN: Arya Mccullough MD. PRIMARY PROVIDER: Marko Mariano MD. INDICATION FOR CONSULTATION: 1. Abdominal pain. 2. Rectal bleeding. HISTORY OF PRESENT ILLNESS: The patient is a 76-year-old, white male who has been followed in our clinic for several years. He has a history of ulcerative colitis. His clinical course has been complicated by the diagnosis of stage IV lung cancer, status post treatment. His course has also been complicated by a saddle pulmonary embolus and DVTs. He is currently on Coumadin. He presented with acute epigastric pain and bloody stools. We are asked to perform endoscopic evaluation. PAST MEDICAL HISTORY: 1. Stage IV lung cancer. 2. Newly diagnosed early dementia. 3. GERD. 4. UC. 5. Hyperlipidemia. 6. Obstructive sleep apnea. 7. Prostate cancer. 8. DVT. 9. PE. 10. Colon polyps. 11. Diverticulosis. 12. Hemorrhoids. 13. Schatzki's ring. 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 15. History of a GI bleed. PAST SURGICAL HISTORY: 1. Left shoulder surgery. 2. Appendectomy. 3. Right shoulder surgery. 4. Prostatectomy. 5. Rhinoplasty. FAMILY HISTORY: Noncontributory. SOCIAL HISTORY: He is and lives with his . They have 2 adult children. He previously smoked 1 pack per day for 50 years. He stopped smoking 3 years ago at the time of the diagnosis of lung cancer. HOME MEDICATIONS: 1. Coumadin. 2. VESIcare. 3. Potassium chloride. 4. Asacol. 5. Centrum Silver. 6. Vitamin D3. 7. Adderall. REVIEW OF SYSTEMS: Remarkable for abdominal pain, bloody stools, nausea, heartburn, and indigestion. He also reports fatigue. PHYSICAL EXAMINATION: Vital Signs: On examination, his blood pressure is 141/77, pulse of 83, respirations 17, temperature of 98 degrees. His oxygen saturation is 99%. General: He is in no acute distress but has had a tremendous weight loss compared to his previous examination. HEENT: Negative for jaundice. His conjunctivae are pale. His oropharyngeal mucosal membranes are dry. Cardiac Examination: He has regular rate and rhythm with no gallops or rubs. Pulmonary Examination: His lungs are clear to auscultation with normal respiratory effort. Abdominal Examination: Reveals normoactive bowel sounds. The abdomen is soft with mild to moderate tenderness over the transverse colon. There is no rebound or guarding. Urologic Examination: He has an indwelling Martínez with yellow urine in the bag. Neurologic Examination: He is overall deconditioned and weaker compared to his previous examination. He had some difficulty with word recall and memory, consistent with early dementia. Extremities: Bilaterally are remarkable for trace edema. He has decreased control and range of motion. OBJECTIVE DATA: Including his labs were personally reviewed. IMPRESSION: 1. Rectal bleeding. 2. Ulcerative colitis. 3. Gastroesophageal reflux disease. 4. Heartburn with indigestion and possible mild nausea. RECOMMENDATION: 1. We will plan to perform an EGD with a colonoscopy versus flexible sigmoidoscopy in the morning. If he has a significant amount of rectal and colonic inflammation consistent with ulcerative colitis, I will change the colonoscopy to a flexible sigmoidoscopy. 2. Begin Protonix 40 mg IV q.12 hours. 3. Monitor serial hemoglobin and hematocrit. 4. I anticipate the patient will need steroids given his history of ulcerative colitis. Therefore, begin Solu-Medrol 40 mg IV q.12 hours. 5. Continue his Asacol as you are doing pending further evaluation. Depending on our findings, he may need to be transitioned to an anti-TNF therapy in order to control of his ulcerative colitis. This will present a problem given that he is on Keytruda for treatment of his lung cancer. I will discuss further management with Dr. Mariano following endoscopic evaluation.
--- NOTE | 2016-10-26 04:43 | OPERATIVE NOTE ---
PROCEDURE DATE: 10/22/2016 REFERRING PHYSICIAN: Arya Mccullough MD. PRIMARY PROVIDER: Marko Mariano MD. INDICATION FOR PROCEDURE: 1. Rectal bleeding. 2. Known history of ulcerative colitis. PROCEDURE PERFORMED: Flexible sigmoidoscopy with biopsy. CONSENT: Informed consent was obtained from the patient prior to the procedure. The risks, benefits, and alternatives were discussed with the patient and his . MEDICATIONS: The patient received monitored anesthesia care. PERFORMING PHYSICIAN: Tami Rachel MD. ASSISTANTS: 1. [facility] 2. Elvira Fuchs RN. 3. Wilson Gaston CRNA. 4. Daniel Cheney MD (anesthesia). COMPLICATIONS: There were no complications. ESTIMATED BLOOD LOSS: Less than 2 mL. SPECIMENS REMOVED: Random colon biopsies. FINDINGS: Prior to the start of the procedure, the patient had a bowel movement and passed copious amounts of thick brown mucoid stool. It was determined that a colonoscopy would not be possible in light of the above. His procedure was changed to a colonoscopy prior to the start of the procedure. The colonoscope was inserted to approximately 40 cm. At 40 cm, the more proximal colon could be visualized to the splenic flexure. There was severe ulcerative pancolitis as far at the lumen could be visualized. There was also diverticulosis in the left colon. There was purulent exudate in the diverticula. It was not possible to determine if it was from the colitis or if there was an ongoing acute diverticulitis. There were multiple sessile colon polyps present in the left colon that ranged in size from 5-10 mm that remained intact. In the upper rectum, there were grade 2 internal hemorrhoids. No retroflexed exam was performed. Upon withdrawal of the scope, there were large external hemorrhoids that were nonbleeding. The lumen was decompressed and the scope was removed without incident. IMPRESSION: 1. Severe acute ulcerative colitis. 2. Diverticulosis with possible diverticulitis. 3. Multiple sessile colon polyps. 4. Internal hemorrhoids. 5. External hemorrhoids. RECOMMENDATION: 1. Continue Solu-Medrol 40 mg IV q.12 hours. 2. Await biopsy results. 3. If the rectal bleeding persists, I would add Levaquin and Flagyl antibiotics. At this time, he has no indication of acute infection and his stool studies have been negative for infection. I will monitor his clinical course at this time. 4. I suspect the activation of his ulcerative colitis may be a side effect of the Keytruda chemotherapy. Therefore, I will discuss his management with Hematology/Oncology. 5. Additional recommendations to follow based on his clinical course.
[2016-10-26] MEDS: DILAUDID IV PRN ×2 (05:02→23:08)
[2016-10-26] MEDS: SODIUM CHLORIDE 0.9% INJ PRN (06:34)
[2016-10-26] MEDS: SYNTHROID IV SCH (06:34)
[2016-10-26 06:51] LABS: MANUAL DIFF NEEDED? NO
[2016-10-26 07:06] LABS: INR 1.59; PROTIME 16.9 Seconds (9.2-11.7)
[2016-10-26 07:10] LABS: BASO% 0.2 % (0.0-0.8); HEMATOCRIT 35.3 % (42.0-52.0); IMM GRAN# 0.17 X1000 (0.0-0.04); IMM GRAN% 2.7 % (0.0-0.5); LYMPH# 0.83 X1000 (1.2-3.4); LYMPH% 12.9 % (20.5-51.1); MCV 94.1 FL (81-99); MONO# 0.56 X1000 (0.11-0.59); MONO% 8.7 % (1.7-9.3); MPV 8.7 FL (7.4-10.4); NEUT% 75.5 % (42.2-75.2); PLT 235 X1000 (130-400); RBC 3.75 XMIL (4.7-6.1)
[2016-10-26 07:25] LABS: AGAP 11; BUN 18 mg/dL (8-22); CALCIUM 9.6 mg/dL (8.8-10.2); CHLORIDE 98 mmol/L (98-107); COSMO 273; POTASSIUM 3.9 mmol/L (3.5-5.1); SODIUM 135 mmol/L (136-145); TCO2 26 mmol/L (25-35)
[2016-10-26] MEDS: NS 1,000 ML IV SCH (09:26)
[2016-10-26] MEDS: SOLU-MEDROL IV SCH ×2 (09:27→21:22)
[2016-10-26] MEDS: LOVENOX SUBQ SCH ×2 (09:27→21:22)
[2016-10-26] MEDS: PROTONIX IV SCH ×2 (09:27→21:22)
[2016-10-26] MEDS: MIRALAX PO SCH (09:27)
[2016-10-26] MEDS: SODIUM CHLORIDE 0.9% INJ SCH (09:27)
--- NOTE | 2016-10-26 17:39 | PROGRESS NOTE ---
DATE: 10/26/2016 SUBJECTIVE: This patient states that he is feeling better. The family members are at the bedside. We are working on placement. Probably, this patient will be discharged to [facility]. He has no specific complaints today, just mild abdominal distention and discomfort. OBJECTIVE: Vital Signs: Temperature 97.8 degrees, pulse 63. respiratory rate 20, blood pressure 135/79, and O2 saturation 98% on room air. HEENT: Head is normocephalic. No trauma. PERRLA. Neck: Supple. No JVD. No masses. Central trachea. Chest: Bilateral rales at the bases, but compared with admission, it is much better. No wheezing. Decreased breath sounds globally. Cardiovascular: RRR. No murmurs. Abdomen: Soft. Mild generalized tenderness to palpation, also at the level of the lower quadrants. Positive bowel sounds. Extremities: No edema. No clubbing. No cyanosis. Neurological: The patient is alert. He is oriented x3 at this moment. LABORATORY DATA: WBC 6.4, hemoglobin 12, hematocrit 35.3, platelets 235,000. PT 16.9, INR 1.59. Sodium 135, potassium 3.9, chloride 98, bicarbonate 26, BUN 18, creatinine 0,.9 glucose 110, calcium 9.6. ASSESSMENT AND PLAN: 1. Painful gastrointestinal bleed. This patient is status post upper endoscopy and sigmoidoscopy. The esophagogastroduodenoscopy showed multiple arteriovenous malformations, gastritis, duodenitis, ulcers. At the level of the colon, it showed ulcerative colitis, colon polyps, diverticulosis, and diverticula that have pus in them. Multiple small polyps as well. The abdominal pain is getting better. No more bleed. We will continue to monitor. 2. Metastatic lung cancer. Hematology/Oncology is on board. He has been on Keytruda as an outpatient. The treatment is going to be held, and Hematology/Oncology will restart any treatment as an outpatient after reevaluation. 3. Ulcerative colitis. This patient has been scoped. He is on steroids. We will continue with the same management for now. 4. History of pulmonary embolism. We restarted anticoagulation therapy 3 days ago. We will continue to monitor the INR, and we will continue the treatment with warfarin. 5. History of abdominal aortic aneurysm. His blood pressure has been stable. 6. Dementia. Apparently, this condition has been getting worse and also has been on and off. We will continue to monitor. 7. Gastroesophageal reflux disease. Continue with proton pump inhibitors. 8. Hypothyroidism. Continue for now with IV Synthroid. I believe it can be changed to p.o. upon discharge. He used to be on Synthroid 100 mcg daily. Overall, this patient is doing much better. I had a conversation with Dr. Rachel, his education officer, and this patient can be discharged once the INR therapeutic. Today it is around 1.6. We will continue monitoring the INR. Hopefully, in 1 or 2 days, this patient is going to be able to be discharged. We are working on a rehab center, [facility].
[2016-10-26] MEDS: COUMADIN PO SCH (21:21)
[2016-10-26] MEDS: CANASA SUPP PR SCH (21:22)
[2016-10-27] MEDS: SODIUM CHLORIDE 0.9% INJ SCH ×3 (03:50→23:32)
[2016-10-27] MEDS: CARAFATE LIQUID PO SCH ×4 (03:50→20:48)
[2016-10-27] MEDS: SYNTHROID IV SCH (06:12)
[2016-10-27 07:27] LABS: MANUAL DIFF NEEDED? NO
[2016-10-27 07:52] LABS: INR 1.7; PROTIME 18.1 Seconds (9.2-11.7)
[2016-10-27 07:56] LABS: AGAP 13; BUN 18 mg/dL (8-22); CALCIUM 8.8 mg/dL (8.8-10.2); CHLORIDE 96 mmol/L (98-107); COSMO 275; POTASSIUM 3.7 mmol/L (3.5-5.1); SODIUM 134 mmol/L (136-145); TCO2 25 mmol/L (25-35)
[2016-10-27 07:57] LABS: BASO% 0.2 % (0.0-0.8); HEMATOCRIT 35.5 % (42.0-52.0); HEMOGLOBIN 11.9 g/dL (14.0-18.0); IMM GRAN# 0.25 X1000 (0.0-0.04); IMM GRAN% 3.8 % (0.0-0.5); LYMPH# 0.68 X1000 (1.2-3.4); LYMPH% 10.4 % (20.5-51.1); MCH 31.9 PG (27-31); MCHC 33.5 g/dL (33-37); MCV 95.2 FL (81-99); MONO# 0.36 X1000 (0.11-0.59); MONO% 5.5 % (1.7-9.3); MPV 8.9 FL (7.4-10.4); NEUT% 80.1 % (42.2-75.2); PLT 245 X1000 (130-400); RBC 3.73 XMIL (4.7-6.1)
[2016-10-27] MEDS: NS 1,000 ML IV SCH ×2 (10:05)
[2016-10-27] MEDS: MIRALAX PO SCH (10:05)
[2016-10-27] MEDS: PROTONIX IV SCH ×2 (10:05→20:48)
[2016-10-27] MEDS: LOVENOX SUBQ SCH ×2 (10:05→20:48)
[2016-10-27] MEDS: SOLU-MEDROL IV SCH ×2 (10:05→21:55)
[2016-10-27] MEDS: DILAUDID IV PRN ×2 (10:56→20:42)
[2016-10-27] MEDS: COUMADIN PO SCH ×2 (15:51→20:41)
--- NOTE | 2016-10-27 15:59 | PROGRESS NOTE ---
DATE: 10/27/2016 SUBJECTIVE: Patient reports feeling better. Denies any fever or chills. Some abdominal distention but generally speaking he is doing fine. OBJECTIVE: Vital Signs: Temperature 97.4 degrees, heart rate 63, respiratory rate 16, blood pressure 130/84. O2 saturation 97% on 2 L nasal cannula. General Examination: This is a chronically ill-looking, frail, 76-year-old male, lying in bed, in no acute distress. HEENT: Head is normocephalic, atraumatic. Anicteric sclerae and pale conjunctivae. Mucous membranes moist. Neck: Supple. No JVD noted. No carotid bruits. No lymphadenopathy. No thyromegaly. Cardiovascular exam: Bilateral rales in both bases. No wheezing. Patient is not using any accessory muscles or having work of breathing. Abdomen: Soft, a little bit distended. Mild generalized tenderness to palpation. Bowel sounds present. No organomegaly. Extremities: No clubbing, cyanosis, or edema. Peripheral pulses present in both legs. Neurological: Patient is alert, moves 4 extremities. LABORATORY DATA: White cell count 6.57, hemoglobin 11.9, hematocrit 35.5, platelets 245,000. INR 1.7. BMP is unremarkable except glucose 187. INR 1.7. ASSESSMENT AND PLAN: 1. Gastrointestinal bleeding. The EGD shows AVM, gastritis and duodenitis and also the colonoscopy shows ulcerative colitis. GI is following this patient. We will continue with the same management. 2. Metastatic lung cancer. Hematology/Oncology on board. By now, they are not planning to do any treatment and they will see this patient as an outpatient after he is discharged. 3. Ulcerative colitis. Patient is on steroids and can be discharged on those medications orally. 4. History of pulmonary embolism. Warfarin was stopped for the procedure and now has been restarted. The patient is good to go when the INR is 2 or above. 5. History of abdominal aortic aneurysm. Blood pressure is under control. We will continue with the same management. 6. Dementia. This condition is like on and off. There will be the definitely more episodes of delirium with this patient. 7. Hypothyroidism. Will continue with Synthroid. 8. Gastroesophageal reflux disease. We will continue with Protonix. Overall this patient is doing good. As per Dr. Rachel patient can be discharged when INR is therapeutic. We are waiting for a bed in the rehab facility but unfortunately today also has refused to take this patient. We will see tomorrow if we can find another place for him.
[2016-10-27] MEDS ORDERED: DUONEB (A & A) INH ONE (20:32)
[2016-10-27] MEDS: CANASA SUPP PR SCH (20:51)
--- NOTE | 2016-10-27 21:06 | PROGRESS NOTE ---
DATE: 10/27/2016 SUBJECTIVE: Called to the patient's bedside by the patient's family. They report he does not look well this evening. The patient reports increased fatigue after participating in physical therapy today. He was able to walk to the nurse's station and back to his room. He reports that his abdomen is much better. He is having regular bowel movements, although diarrheal. There was no evidence of blood. He continues to have mild diffuse abdominal tenderness. He denies nausea with vomiting, fever and chills. On exam, he is in no acute distress, but has an audible wheeze. OBJECTIVE: Vital signs: At the bedside, his blood pressure is 142/80, pulse 75, respiration 14, temperature of 97.6 degrees. General: He is in no acute distress. HEENT: Negative for jaundice. His conjunctivae are pale. His oropharyngeal mucosa membranes are moist. Pulmonary: He has scattered end-expiratory wheezes which are new. He has normal excursion and breath sounds are equal bilaterally. Cardiovascular: He has regular rate and rhythm with no gallops or rubs. Abdominal: Reveals normoactive bowel sounds. The abdomen is soft with mild diffuse tenderness. There is no rebound or guarding. OBJECTIVE DATA: Remarkable for hemoglobin of 11.9 with hematocrit of 35.5 and a white count of 6.57. He has 245,000 platelets. His PT is 18.1 with an INR of 1.17. Sodium is 134, potassium 3.7, chloride 96, CO2 of 25, BUN 18, creatinine 0.9 with a glucose of 187. His calcium is 8.8. IMPRESSION: 1. Metastatic lung cancer. 2. Ulcerative colitis. 3. Gastrointestinal bleed. 4. Diarrhea. 5. Blood in the stool. 6. Significant deconditioning. 7. Wheezing. 8. History of pulmonary embolus. RECOMMENDATION: 1. From a gastrointestinal perspective, I would continue the intravenous steroids. Once his diarrhea resolves, I would begin tapering the dose to avoid side effects or adverse outcomes from the long-term steroid use. Ideally, he needs to be on a dose of 40 mg once a day orally. 2. I have discussed with Dr. Mariano the options of Lialda versus Apriso in place of Asacol. He will contact the manufactures of Keytruda to determine which medicine would be acceptable to avoid drug interactions. We await follow up from Dr. Mariano. 3. The patient has audible wheezing today, which is new. I will check an oxygen saturation and chest x-ray. I will also administer 1 time DuoNeb. I will defer to the primary team in the morning for reassessment of his pulmonary status. 4. Continue Canasa suppositories at bedtime until he returns to clinic. 5. I would transition him to Prilosec 40 mg twice a day in rehab. 6. He should complete 12 weeks of Carafate 1 g p.o. 4 times a day and then stop. 7. He may use MiraLAX as needed to avoid constipation. 8. I will begin tapering his prednisone most likely in the next 24 hours as his rectal bleeding has stopped. 9. From a gastrointestinal perspective, he will be stable from discharge to rehab when his international normalized ratio is therapeutic.
[2016-10-28] MEDS: CARAFATE LIQUID PO SCH ×4 (05:50→21:38)
[2016-10-28] MEDS: SYNTHROID IV SCH (06:12)
[2016-10-28] MEDS: NS 1,000 ML IV SCH ×3 (06:13→12:08)
[2016-10-28 07:41] LABS: INR 1.82; PROTIME 19.4 Seconds (9.2-11.7)
--- NOTE | 2016-10-28 08:17 | Diag Imaging Result Document ---
PROCEDURE NAME: CHEST-2 VIEWS - 10/27/2016 TWO VIEWS OF THE CHEST: FINDINGS: There has been no apparent change in the chest since the previous study of 10/01/2016. There is fullness in the right hilar region which was also present previously. The right upper lobe appears to be better expanded than on the previous study. IMPRESSION: Essentially stable chest.
[2016-10-28] MEDS: SOLU-MEDROL IV SCH ×2 (09:33→21:39)
[2016-10-28] MEDS: PROTONIX IV SCH ×2 (09:33→21:38)
[2016-10-28] MEDS: SODIUM CHLORIDE 0.9% INJ SCH ×2 (09:33→21:38)
[2016-10-28] MEDS: LOVENOX SUBQ SCH ×2 (09:33→21:39)
[2016-10-28] MEDS: MIRALAX PO SCH (09:33)
--- NOTE | 2016-10-28 11:05 | PROGRESS NOTE ---
DATE: 10/28/2016 SUBJECTIVE: Patient is feeling better. Denies any shortness of breath, any fever or chills. OBJECTIVE: Vital Signs: Temperature 97.7 degrees, heart rate 63, respiratory rate 18, blood pressure 138/79, O2 saturation 99% on room air. General Examination: This is a chronically ill- looking and frail 76-year-old male, lying in bed, in no acute distress. HEENT: Head is normocephalic, atraumatic. Anicteric sclerae and pale conjunctivae. Mucous membranes moist. Neck: Supple. No JVD noted. No carotid bruits. No lymphadenopathy. No thyromegaly. Cardiovascular: S1, S2 heard. No murmurs, gallops, or rubs. Regular rate and rhythm. Respiratory Exam: Bilateral rales in both bases unchanged in comparing with yesterday. No wheezing. Patient is not using any accessory muscles or having work of breathing. Abdomen: Soft, a little bit distended. Nontender to palpation. Bowel sounds present. No organomegaly. No signs of peritoneal irritation. Extremities: No clubbing, cyanosis, or edema. Peripheral pulses present in both legs. Neurological: Patient alert and oriented. Moves 4 extremities. LABORATORY DATA: INR 1.82. ASSESSMENT AND PLAN: 1. Gastrointestinal bleeding. Dr. Rachel is following this patient and from GI perspective she recommends to continue with IV steroid. The patient reports that the diarrhea has resolved so he will be started on prednisone 40 daily to be tapered off slowly. He also we will continue with Carafate and Prilosec. 2. Metastatic lung cancer. As we mentioned before, Hem/Onc is on board but they are not planning to do any treatment by now and they are going to see him as an outpatient. He is complaining yesterday apparently of shortness of breath but today he is doing fine. The physical examination did disclose a few rales in both bases but patient is not requiring any oxygen supplementation. An x-ray ordered yesterday shows stable chest. At this time, we are going to continue with the same management. 3. Ulcerative colitis. Patient's diarrhea has stopped so we are going to start on prednisone and taper off slowly. 4. History of pulmonary embolism. INR is close to 2. We will continue with the same management. 5. History of abdominal aortic aneurysm. Blood pressure is under control. We will continue with same treatment. 6. Dementia. By now, this patient looks to me very well. Oriented. Definitely he may have some episodes of delirium but by now he is doing okay. 7. Hypothyroidism. As per family request, we are going to check TSH and will continue with the same doses of Synthroid right now. 8. Gastroesophageal reflux disease. We will continue with Protonix. 9. Physical deconditioning. We are still waiting for a rehab facility versus penitentiary for this patient.
--- NOTE | 2016-10-28 15:51 | Diag Imaging Result Document ---
PROCEDURE NAME: ANGIOGRAM/PULMONARY ARTERIES - 10/28/2016 CT PULMONARY ANGIOGRAM WITH INTRAVENOUS CONTRAST: COMPARISON: 10/20/2016. FINDINGS: Axial CT images of the chest were obtained after administering intravenous contrast. Coronal MIP images were generated. There is no pulmonary embolism. Heart and great vessels remain grossly normal. Stable pulmonary fibrosis. Stable small area of consolidation in the right lower lobe. No new infiltrates. Bony structures are intact. IMPRESSION: Negative for pulmonary embolism. Pulmonary fibrosis. Small right lower lobe consolidation stable from prior.
[2016-10-28] MEDS: COUMADIN PO SCH (21:38)
[2016-10-28] MEDS: CANASA SUPP PR SCH (21:39)
[2016-10-29] MEDS: CARAFATE LIQUID PO SCH ×4 (06:27→21:30)
[2016-10-29] MEDS: SYNTHROID IV SCH (06:28)
[2016-10-29 07:46] LABS: INR 1.91; PROTIME 20.4 Seconds (9.2-11.7)
[2016-10-29] MEDS: LOVENOX SUBQ SCH ×2 (10:21→21:16)
[2016-10-29] MEDS: MIRALAX PO SCH (10:22)
[2016-10-29] MEDS: SOLU-MEDROL IV SCH ×2 (10:22→21:16)
[2016-10-29] MEDS: PROTONIX IV SCH ×2 (10:22→21:16)
[2016-10-29] MEDS ORDERED: LEVAQUIN PO ONE (13:05)
--- NOTE | 2016-10-29 13:59 | DISCHARGE SUMMARY ---
ADMISSION DATE: 10/20/2016 DISCHARGE DATE: 10/29/2016 CONSULTATION: 1. Dr. Marko Mariano. 2. Dr. Tami Rachel. DISCHARGE DIAGNOSES: 1. Gastrointestinal bleed, status post esophagogastroduodenoscopy/flexible sigmoidoscopy by Dr. Rachel. The patient will be weaned off IV steroids and started on prednisone 40 daily to be tapered off slowly. He will also continue with Carafate and Prilosec. 2. Metastatic lung cancer. Hematology is on board. He will follow up with them again as outpatient. 3. Ulcerative colitis. The patient's diarrhea has stopped. Again, he was weaned down on his IV steroids and will be back on p.o. steroids to be weaned down slowly. 4. Right lower lobe pneumonia. The patient started on Levaquin. 5. Abdominal aortic aneurysm, history, stable. 6. Dementia, stable. 7. Hypothyroidism, continue Synthroid. However, the patient's TSH is 10. We will refer this to his primary care physician. 8. Gastroesophageal reflux disease. Continue with PPI. 9. Physical deconditioning. The patient going to [facility] today. HOSPITAL COURSE: Briefly, Mr. 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 Mariano who has gone through radiation and chemo. He has a history of abdominal aortic aneurysm status post repair. PE on lifelong Coumadin. He also recently developed dementia and that started Aricept for that come. On admission, the patient was alert but a poor historian but there were multiple family members at bedside to help obtained the history. On the day of admission, the patient started having acute onset of abdominal pain. They stated he yelled out and pain and subsequently had bowel movements with bright red blood, a medium amount per the family, then he had another bowel movement with blood later on for which he came to the ED for evaluation. The family states that the patient had been declining mentally and physically and that he had been more confused and his mobility had decreased. They had gone on as far as consider hospice given the history of metastatic disease, but, interestingly, the patient had a brain MRI done on the day before admission that did not show any metastatic lesions to the brain, just diffuse white matter disease. Laboratory data in the ED showed mild anemia and INR of 2.81, otherwise, nothing acute. The ED ordered her vitamin K as well as 2 units of FFP. The patient was admitted with pain control as well as a GI consultation and a consultation in to Dr. Mariano. His Coumadin was held. His hemoglobin and hematocrit was monitored regularly. The patient did undergo an EGD and flexible sigmoidoscopy with Dr. Rachel. She felt that the acute blood was from his treatment of Keytruda. The patient was started on a Protonix drip as well as resume Protonix 40 mg IV q.12, as well as started on Carafate suspension, as well as his suppositories at bedtime. There was no indication of any acute infection. Dr. Rachel discussed these findings with hematology and oncology. Other outpatient visit, he did start complaining of some shortness of breath. To rule out any PE given his history, a pulmonary arteriogram was ordered. It was negative for PE. It did show some pulmonary fibrosis, however, it did show a small right lower lobe consolidation, stable from prior. The patient went ahead and started on Levaquin p.o. There has been no elevation in his white count. Patient has remained afebrile. The patient's diarrhea has stopped. His IV steroids were tapered down to p.o. He will be on these and slowly tapered down on his dosages. The patient is being discharged to [facility] today. VITAL SIGNS AT TIME OF DISCHARGE: Temperature is 97.6 degrees, heart rate 67, respirations 16, blood pressure 141/79, O2 is 98% on room air. DISCHARGE DIET: Healthy heart with Boost. DISCHARGE MEDICATIONS: Will be as per Dr. Lund. FOLLOWUP: The patient is being discharged to [facility]. He will need to follow up with his primary oncologist, Dr. Marko Mariano as well as Dr. Rachel. He can follow up with his primary care physician after rehab. The patient can return to the ED for any worsening of symptoms. Dictated by NURYS Schilling for Raul Garcia MD
[2016-10-29] MEDS: NS 1,000 ML IV SCH ×2 (14:15→18:01)
[2016-10-29] MEDS: SODIUM CHLORIDE 0.9% INJ SCH ×2 (17:14→21:16)
[2016-10-29] MEDS: DILAUDID IV PRN (21:16)
[2016-10-29] MEDS: COUMADIN PO SCH (21:17)
[2016-10-29] MEDS: CANASA SUPP PR SCH (21:30)
[2016-10-30] MEDS: CARAFATE LIQUID PO SCH ×2 (04:49→09:54)
[2016-10-30] MEDS: SODIUM CHLORIDE 0.9% INJ PRN (06:37)
[2016-10-30] MEDS: SYNTHROID IV SCH (06:38)
[2016-10-30 06:49] LABS: INR 1.96; PROTIME 20.9 Seconds (9.2-11.7)
[2016-10-30] MEDS ORDERED: PREDNISONE PO SCH (09:00)
[2016-10-30 09:32] VITALS: BP 137/82
[2016-10-30] MEDS: SODIUM CHLORIDE 0.9% INJ SCH (09:53)
[2016-10-30] MEDS: MIRALAX PO SCH (09:53)
[2016-10-30] MEDS: PROTONIX IV SCH (09:53)
[2016-10-30] MEDS: LOVENOX SUBQ SCH (09:54)
[2016-10-30] MEDS ORDERED: HEPARIN ONE (10:22)
== END 2016-10-30 11:27 | disposition home or self-care (01) | DRG 385 ==
LOC: ED 12:54 → 3N 17:58
PROVIDERS: ATTEND Internal Medicine
PROC: 30233K1 Transfusion of Nonautologous Frozen Plasma into Peripheral Vein, Percutaneous Approach (ICD-10-PCS; 2016-10-20)
PROC: 0DB98ZX Excision of Duodenum, Via Natural or Artificial Opening Endoscopic, Diagnostic (ICD-10-PCS; principal; 2016-10-25)
PROC: 0DB68ZX Excision of Stomach, Via Natural or Artificial Opening Endoscopic, Diagnostic (ICD-10-PCS; 2016-10-25)
PROC: 0DBN8ZX Excision of Sigmoid Colon, Via Natural or Artificial Opening Endoscopic, Diagnostic (ICD-10-PCS; 2016-10-25)
DX: K51.90 Ulcerative colitis, unspecified, without complications (principal); J18.9 Pneumonia, unspecified organism; J44.9 Chronic obstructive pulmonary disease, unspecified; D63.8 Anemia in other chronic diseases classified elsewhere; F03.90 Unspecified dementia, unspecified severity, without behavioral disturbance, psychotic disturbance, mood disturbance, and anxiety; E87.6 Hypokalemia; K29.80 Duodenitis without bleeding; K25.9 Gastric ulcer, unspecified as acute or chronic, without hemorrhage or perforation; K29.60 Other gastritis without bleeding; K31.819 Angiodysplasia of stomach and duodenum without bleeding; K31.7 Polyp of stomach and duodenum; K57.30 Diverticulosis of large intestine without perforation or abscess without bleeding; K63.5 Polyp of colon; K22.8 Other specified diseases of esophagus; K64.8 Other hemorrhoids; K64.4 Residual hemorrhoidal skin tags; E03.9 Hypothyroidism, unspecified; E78.5 Hyperlipidemia, unspecified; K21.9 Gastro-esophageal reflux disease without esophagitis; G47.33 Obstructive sleep apnea (adult) (pediatric); Z79.899 Other long term (current) drug therapy; Z79.01 Long term (current) use of anticoagulants; Z92.3 Personal history of irradiation; Z92.21 Personal history of antineoplastic chemotherapy; Z85.46 Personal history of malignant neoplasm of prostate; Z87.891 Personal history of nicotine dependence; Z86.711 Personal history of pulmonary embolism; Z86.718 Personal history of other venous thrombosis and embolism; Z85.118 Personal history of other malignant neoplasm of bronchus and lung; T45.1X5A Adverse effect of antineoplastic and immunosuppressive drugs, initial encounter
CPT/HCPCS: 36430; 70553; 71020; 71260; 71275; 74177; 80048; 80053; 81001; 82270; 82607; 82728; 82746; 83540; 83550; 83735; 84443; 85025; 85027; 85610; 85730; 86850; 86900; 86901; 88305; 88312; 88313; 94640; 94761; 96374; A9579; C9113; J1170; J1650; J2405; J2920; J3430; J3480; J7030; J7040; J7120; J7512; P9017; Q9967; 97110-GO; 97116-GP; 97530-GO; 97530-GP; 99285-25; S0164

== ENCOUNTER 2016-12-04 09:16 | Inpatient (IN) ==
[2016-12-04 10:18] LABS: MANUAL DIFF NEEDED? NO
[2016-12-04 10:26] LABS: BASO% 0.4 % (0.0-0.8); EOS# 0.02 X1000 (0.0-0.7); EOS% 0.4 % (0.0-10.0); HEMATOCRIT 40.6 % (42.0-52.0); HEMOGLOBIN 13.2 g/dL (14.0-18.0); IMM GRAN# 0.09 X1000 (0.0-0.04); IMM GRAN% 1.7 % (0.0-0.5); LYMPH# 0.81 X1000 (1.2-3.4); LYMPH% 15.5 % (20.5-51.1); MCH 31.6 PG (27-31); MCHC 32.5 g/dL (33-37); MCV 97.1 FL (81-99); MONO% 7.7 % (1.7-9.3); MPV 8.8 FL (7.4-10.4); NEUT% 74.3 % (42.2-75.2); PLT 130 X1000 (130-400); RBC 4.18 XMIL (4.7-6.1)
[2016-12-04 10:45] LABS: AGAP 11; ALBUMIN 3.4 g/dL (3.5-5.0); ALKALINE PHOSPHATASE 64 U/L (32-122); BUN 18 mg/dL (8-22); CALCIUM 8.4 mg/dL (8.8-10.2); CHLORIDE 97 mmol/L (98-107); CK PROFILE 42 U/L (24-204); COSMO 277; GOT 17 U/L (10-34); GPT 34 U/L (10-44); POTASSIUM 3.4 mmol/L (3.5-5.1); SODIUM 138 mmol/L (136-145); TCO2 30 mmol/L (25-35); TOTAL BILIRUBIN 0.99 mg/dL (0.20-1.00); TOTAL PROTEIN 6.6 g/dL (6.3-8.3)
[2016-12-04 10:54] LABS: INR 2.61; PROTIME 29.1 Seconds (9.2-11.7); PTT 55.8 Seconds (22.0-36.0)
--- NOTE | 2016-12-04 11:14 | PROVIDER DOCUMENTATION ---
This chart was entered by Tara Thompson Scribe, acting as scribe for Bennie Matos MD. HPI-Neurological Disorder - General Chief Complaint: Altered Mental Status Stated Complaint: unable to use legs Time Seen by Provider: 12/04/16 09:37 Source: patient Allergies/Adverse Reactions: Patient Allergies Allergy/AdvReac Type Severity Reaction Status Date / Time clarithromycin [From Biaxin] Allergy Mild RASH Verified 12/04/16 09:42 Sulfa (Sulfonamide Allergy Mild RASH Verified 12/04/16 09:42 Antibiotics) Home Medications: Home Medication List Medication Instructions Recorded Confirmed Last Taken Type Ascorbate Calcium [Vitamin C] 1,000 mg PO QAM 10/01/16 12/04/16 1 Day Ago History Cholecalciferol (Vit D3) [Vitamin 2,000 unit PO QAM 10/01/16 12/04/16 1 Day Ago History D] Esomeprazole [Nexium] 40 mg PO QAM 10/01/16 12/04/16 1 Day Ago History Levothyroxine Sodium [Synthroid] 100 microgm PO QAM 10/01/16 12/04/16 1 Day Ago History Multivitamins/Minerals [Centrum 1 each PO QAM 10/01/16 12/04/16 1 Day Ago History Silver] Potassium Chloride 10 meq PO QAM 10/01/16 12/04/16 1 Day Ago History Warfarin Sodium 5 mg PO QPM 10/01/16 12/04/16 12/03/16 History Hydromorphone HCl [Dilaudid] 4 mg PO Q6H PRN PRN #30 tablet 10/29/16 12/04/16 1 Day Ago Rx Sucralfate [Carafate Liquid] 1 gm PO Q6HR #120 udc 10/29/16 12/04/16 1 Day Ago Rx Prednisone 20 mg PO DIRECTED 12/01/16 12/04/16 1 Day Ago History Prednisone 40 mg PO DAILY 12/01/16 12/04/16 1 Day Ago History Pembrolizumab [Keytruda] 50 mg IV 12/04/16 11/28/15 History - History of Present Illness-Neuro Nature of Presenting Problem: Pt is 76 y/o M presents to the ED with AMS. Pt's states Pt was in ED Wednesday. Pt's states his symptoms have worsened. Pt's states weakness and unable to stand or walk. Pt's states Pt has lung cancer that moved to the brain. Pt denies CP and SOB. Pt's states rectal bleeding this am and Pt states has ulcerative colitis Headache Location: denies: frontal, temporal, occipital, parietal, global Severity: reports: mild Onset/Duration: reports: 3 days ago Timing: reports: still present Context: reports: other (AMS) Character of Altered Mental Status: reports: confused, decreased responsiveness Any recent trauma/injury?: reports: none Character of Deficits: reports: new weakness, decreased ability to stand, decreased ability to walk New weakness or altered sensation location:: reports: general (diffuse) Cognitive Baseline: alert, oriented x3 Gait Baseline: walks without assistance Associated Symptoms: reports: headache, confusion, trouble walking, weakness. denies: short of breath, decreased ability to walk or stand, fainting, dizziness , chest pain, neck/back pain, fatigue, fever/chills, insomnia, loss of consciousness, muscle spasms, nausea, numbness in legs/feet, paresthesia, diaphoretic, ringing in ears, seizures, sleepy, slurred speech, tingling in legs /feet, vomiting, vision changes Similar Symptoms Previously?: Yes Recently seen or treated by another doctor?: Yes Review of Systems - Adult - REVIEW OF SYSTEMS - ADULT Constitutional: denies: chills, fever Eyes: denies: blurred vision, double vision Ears, Nose, Mouth & Throat: denies: ear pain, nose pain, throat pain Cardiovascular: denies: chest pain, heart murmur, irregular heart rate Respiratory: denies: cough, shortness of breath, wheezing Gastrointestinal: denies: abdominal pain, diarrhea, nausea, vomiting Genitourinary: denies: dysuria, hematuria Musculoskeletal: reports: muscle weakness. denies: bone pain, joint pain, neck pain Integumentary: denies: hives, itching, rash Neurological: reports: headache/migraines (CABRERA). denies: dizziness/vertigo, syncope Psychiatric: reports: no symptoms reported Endocrine: reports: no symptoms reported Hematologic/Lymphatic: reports: no symptoms reported Allergic/Immunologic: reports: no symptoms reported All Other Systems: Reviewed and Negative Past History - Adult - PAST MEDICAL HISTORY-ADULT Review of Records: reports: Nursing Assessment Review, Medications Reviewed, Social history reviewed & non-contributory. Major Childhood Illnesses: reports: denies history Cardiovascular: reports: HTN, other Respiratory: reports: COPD, cancer, sleep apnea Gastrointestinal: reports: colitis (ulcerative) Obstetrical/Gynecological: reports: denies history Genitourinary: reports: denies history Musculoskeletal: reports: denies history Neurological: reports: dementia Endocrine/Immune: reports: thyroid disorder Other Conditions: reports: other (sleep apnea) - PRIOR SURGERIES/PROCEDURES Surgical/Procedure History: reports: appendectomy, orthopedic (extremity), back/ neck, other - IMMUNIZATION STATUS Childhood Immunizations: UTD Flu Vaccine: UTD - FAMILY HISTORY Family History: reviewed, not pertinent - SOCIAL HISTORY Smoking: cigarettes, less than 1 pack/day Provider spent 3-5 mins advising pt. on dangers of tobacco.: Discussed manners to quit use, and f/u contacts for add'l counseling. Substance Use: denies Living Situation: family Physical Exam- Neurological - Physical Exam-Neuro Initial Vital Signs Reviewed: Yes General Appearance: appears well, alert, no apparent distress Eye Exam: bilateral eye: normal inspection, PERRL, EOMI HENMT: normocephalic/atraumatic, moist mucous membranes, normal ENT inspection, TMs normal, pharynx normal Head Injury: no evidence of injury Neck: non-tender, full range of motion, supple, normal inspection Respiratory: chest non-tender, lungs clear, normal breath sounds, no pleuratic chest pain, no respiratory distress, no accessory muscle use Cardiovascular: normal peripheral pulses, regular rate, rhythm, no edema, no gallop, no JVD, no murmur Abdominal Exam: normal bowel sounds, non tender, soft, no organomegaly, no pulsatile mass Lymphatic: no adenopathy Extremity: normal range of motion, non-tender, no pedal edema, no calf tenderness, normal capillary refill Coordination/Gait: normal finger to nose Motor/Sensory: no motor deficit, no sensory deficit, no pronator drift Neurologic: grossly normal Integumentary: normal color, normal turgor, warm/dry Psych/Mental Status: other (confusion) Progress - PLAN OF CARE/RESULTS Progress/Plan/Lab Results: Vital Signs - 8 hr 12/04/16 09:19 12/04/16 12:00 Temperature 98.2 F Pulse Rate 94 H 108 H Respiratory Rate 14 18 Blood Pressure 143/83 149/88 O2 Sat by Pulse Oximetry 94 L 97 Laboratory Results - last 24 hr 12/04/16 12/04/16 12/04/16 10:10 10:10 10:10 WBC 5.21 RBC 4.18 L Hgb 13.2 L Hct 40.6 L MCV 97.1 MCH 31.6 H MCHC 32.5 L RDW Std Deviation 15.7 H Plt Count 130 MPV 8.8 Immature Gran % (Auto) 1.7 H Neut % (Auto) 74.3 Lymph % (Auto) 15.5 L Roosevelt % (Auto) 7.7 Eos % (Auto) 0.4 Baso % (Auto) 0.4 Immature Gran # (Auto) 0.09 H Neut # (Auto) 3.87 Lymph # (Auto) 0.81 L Roosevelt # (Auto) 0.40 Eos # (Auto) 0.02 Baso # (Auto) 0.02 PT INR PTT (Actin FS) Sodium 138 Potassium 3.4 L Chloride 97 L Carbon Dioxide 30 Anion Gap 11 BUN 18 Creatinine 0.8 Estimated GFR/1.73 m2 > 60 BUN/Creatinine Ratio 23 Glucose 93 Calculated Osmolality 277 Calcium 8.4 L Total Bilirubin 0.99 AST 17 ALT 34 Alkaline Phosphatase 64 Creatine Kinase 42 Troponin T [id number] Pept 260 H Total Protein 6.6 Albumin 3.4 L Globulin 3.2 Albumin/Globulin Ratio 1.1 Plasma Lactate Urine Source Urine Color Urine Turbidity Urine pH Ur Specific [place] Urine Protein Ur Glucose (Stick) Ur Ketones (Stick) Urine Blood Urine Nitrite Urine Bilirubin Urobilinogen Dipstick Urine Leukocytes Urine WBC (Auto) Urine RBC (Auto) U Epithel Cells (Auto) Urine Bacteria (Auto) 12/04/16 12/04/16 12/04/16 10:10 10:10 10:22 WBC RBC Hgb Hct MCV MCH MCHC RDW Std Deviation Plt Count MPV Immature Gran % (Auto) Neut % (Auto) Lymph % (Auto) Roosevelt % (Auto) Eos % (Auto) Baso % (Auto) Immature Gran # (Auto) Neut # (Auto) Lymph # (Auto) Roosevelt # (Auto) Eos # (Auto) Baso # (Auto) PT 29.1 H INR 2.61 PTT (Actin FS) 55.8 H Sodium Potassium Chloride Carbon Dioxide Anion Gap BUN Creatinine Estimated GFR/1.73 m2 BUN/Creatinine Ratio Glucose Calculated Osmolality Calcium Total Bilirubin AST ALT Alkaline Phosphatase Creatine Kinase Troponin T < 0.010 Sda-[id number]-Aniphsxmxoq Pept Total Protein Albumin Globulin Albumin/Globulin Ratio Plasma Lactate 1.1 Urine Source Urine Color Urine Turbidity Urine pH Ur Specific [place] Urine Protein Ur Glucose (Stick) Ur Ketones (Stick) Urine Blood Urine Nitrite Urine Bilirubin Urobilinogen Dipstick Urine Leukocytes Urine WBC (Auto) Urine RBC (Auto) U Epithel Cells (Auto) Urine Bacteria (Auto) 12/04/16 11:40 WBC RBC Hgb Hct MCV MCH MCHC RDW Std Deviation Plt Count MPV Immature Gran % (Auto) Neut % (Auto) Lymph % (Auto) Roosevelt % (Auto) Eos % (Auto) Baso % (Auto) Immature Gran # (Auto) Neut # (Auto) Lymph # (Auto) Roosevelt # (Auto) Eos # (Auto) Baso # (Auto) PT INR PTT (Actin FS) Sodium Potassium Chloride Carbon Dioxide Anion Gap BUN Creatinine Estimated GFR/1.73 m2 BUN/Creatinine Ratio Glucose Calculated Osmolality Calcium Total Bilirubin AST ALT Alkaline Phosphatase Creatine Kinase Troponin T Joi-W-Aoinoijkatl Pept Total Protein Albumin Globulin Albumin/Globulin Ratio Plasma Lactate Urine Source CATH Urine Color YELLOW Urine Turbidity HAZY Urine pH 7.5 Ur Specific [place] 1.013 Urine Protein TRACE A Ur Glucose (Stick) NEGATIVE Ur Ketones (Stick) NEGATIVE Urine Blood NEGATIVE Urine Nitrite NEGATIVE Urine Bilirubin NEGATIVE Urobilinogen Dipstick NORMAL Urine Leukocytes NEGATIVE Urine WBC (Auto) <10 Urine RBC (Auto) <10 U Epithel Cells (Auto) <10 Urine Bacteria (Auto) NEGATIVE Orders Category Date Time Status Cardiac Monitoring DIRECTED Care 12/04/16 10:10 Active Martínez Cath Insertion ORDERED Care 12/04/16 10:34 Active Saline Loc NOW Care 12/04/16 10:10 Active CHEST-PORTABLE [RAD] Stat Exams 12/04/16 10:10 Completed HEAD W/O CONTRAST [CT] Stat Exams 12/04/16 10:34 Completed BLOOD CULTURE [BLDCUL] Stat Lab 12/04/16 10:22 Results CBC WITH ELECTRONIC DIFF [HEME] Stat Lab 12/04/16 10:10 Completed CK PROFILE [SP CHEM] Stat Lab 12/04/16 10:10 Completed COMPREHENSIVE METABOLIC PANEL [CHEM] Stat Lab 12/04/16 10:10 Completed LACTATE, PLASMA [CHEM] Stat Lab 12/04/16 10:22 Completed OCCULT BLOOD SCREENING [STOOL] Stat Lab 12/04/16 10:19 Uncollected PRO B-NATRIURETIC PEPTIDE Stat Lab 12/04/16 10:10 Completed PROTIME WITH INR [COAG] Stat Lab 12/04/16 10:10 Completed PTT [COAG] Stat Lab 12/04/16 10:10 Completed TROPONIN T Stat Lab 12/04/16 10:10 Completed URINALYSIS W/POSS RFLX CULT [URINALYSIS] Stat Lab 12/04/16 11:40 Completed Potassium Chloride 10% Liquid Med 12/04/16 12:10 Discontinued 40 meq .ROUTE .STK-MED ONE Potassium Chloride E.r. [Klor-Con] Med 12/04/16 12:00 Discontinued 40 meq PO NOW ONE EKG [EKG] Stat Ther 12/04/16 10:10 Draft Result Diagrams: 12/04/16 10:10 12/04/16 10:10 - EKG 1 Time of EKG reading by physician:: 10:25 EKG Read and Signed by:: Bennie Matos EKG Interpretation (*Must complete 3 of following elements*): Abnormal Rate: 93 Rhythm: sinus rhythm w/ marked sinus arrhythmia w/ occasional premature ventricular Comments: otherwise normal ECG - XRAY 1 XRAY: Bilateral XRAY Study: Chest Impression: Abnormal (suggestion of very mild left basilar atelectasis that has probably improved during the interval. the chest is essentially stable, otherwise) - CT/MRI 1 CT Study: Head Impression: Normal CT Results: stable chronic changes, NAP - CONSULTS/PCP/HOSPITALIST Notification #1 *Consult/PCP/Hospitalist*: Dr. Weinberg Time Discussed: 12:51 (Dr. Weinberg accepted admit ) Reason/Comments: Dr. Matos consults with Dr. Weinberg about admit of Pt Consult Disposition: Admit Departure - Departure Time of Disposition Decision: 12:53 DIAGNOSIS: Generalized weakness Altered mental status Qualifiers: Altered mental status type: unspecified Qualified Code(s): R41.82 - Altered mental status, unspecified Disposition: ADMITTED INPATIENT 09 Certified Medical Emergency: Emergent Condition: Stable Referrals and Follow-Ups: Marko Mariano MD [Primary Care Provider] - This chart was documented by the indicated scribe, (Tara Thompson, [place]) and accurately reflects the services I performed and decisions made by me, Bennie Matos MD, as attested by the provider's signature.
--- NOTE | 2016-12-04 11:23 | Diag Imaging Result Document ---
PROCEDURE NAME: CHEST-PORTABLE - 12/04/2016 SINGLE FRONTAL RADIOGRAPH OF THE CHEST: COMPARISON: 12/01/2016. FINDINGS: Right chest port is in stable position. There is stable fullness of the right hilum. There is suggestion of mild atelectasis at the left lung base that is stable to marginally improved as compared to the previous study. No new consolidation is identified. Cardiac silhouette is stable. IMPRESSION: Suggestion of very mild left basilar atelectasis that has probably improved during the interval. The chest is essentially stable, otherwise.
--- NOTE | 2016-12-04 11:25 | Diag Imaging Result Document ---
PROCEDURE NAME: HEAD W/O CONTRAST - 12/04/2016 CT HEAD WITHOUT CONTRAST: COMPARISON: 12/01/2016. FINDINGS: There is extensive low attenuation in the periventricular and subcortical white matter consistent with advanced microangiopathy, stable. There is no evidence of acute infarct given the limitations of CT versus MRI. There is no discrete intracranial mass, mass effect, or intracranial hemorrhage. There is romero sinus mucosal disease similar to the previous study with air-fluid levels in the maxillary sinuses. IMPRESSION: Stable advanced chronic changes but no evidence of acute intracranial pathology.
[2016-12-04] MEDS ORDERED: KLOR-CON PO ONE ×2 (12:00→17:31)
[2016-12-04] MEDS ORDERED: POTASSIUM CHLORIDE 10% LIQUID ONE (12:10)
[2016-12-04 12:14] LABS: URINE CULTURE NEEDED? NO; URINE MICRO REVIEW NEEDED? NO; URINE SOURCE CATH
[2016-12-04 12:18] LABS: BILIRUBIN URINE NEGATIVE (NEGATIVE); BLOOD URINE NEGATIVE (NEGATIVE); COLOR YELLOW; GLUCOSE URINE NEGATIVE (NEGATIVE); LEUKOCYTES URINE NEGATIVE (NEGATIVE); NITRITE URINE NEGATIVE (NEGATIVE); PH URINE 7.5; PROTEIN URINE TRACE mg/dL (NEGATIVE); SP GRAVITY URINE 1.013; TURBIDITY URINE HAZY (CLEAR); UR EPITHELIAL CELLS <10 /HPF (<10); URINE BACTERIA NEGATIVE /HPF; URINE RBC <10 /HPF (<10); URINE WBC <10 /HPF (<10); UROBILINOGEN URINE NORMAL (NORMAL)
--- NOTE | 2016-12-04 12:28 | EKG Report ---
Test Performed on : 12/04/2016 10:25:47 AM Test Reason : AMS Blood Pressure : / mmHG Vent. Rate : 093 BPM Atrial Rate : 093 BPM P-R Int : 174 ms QRS Dur : 088 ms QT Int : 360 ms P-R-T Axes : 044 020 039 degrees QTc Int : 447 ms Sinus rhythm. with marked sinus arrhythmia. with occasional premature ventricular complexes. Otherwise normal ECG When compared with ECG of 01-OCT-2016 12:08, premature ventricular complexes. are now present Unconfirmed Result
[2016-12-04] MEDS ORDERED: SOLU-MEDROL IV SCH (14:30)
[2016-12-04 14:56] LABS: FREE T4 0.85 ng/dL (0.93-1.70)
--- NOTE | 2016-12-04 15:45 | Diag Imaging Result Document ---
PROCEDURE NAME: MRI THORACIC SPINE W/O CONTRAS - 12/04/2016 MRI THORACIC SPINE: COMPARISON: CT chest, 10/28/2016. FINDINGS: There is a grossly stable right lower lobe area of consolidation. Alignment is anatomic. Vertebral body heights and intervertebral disk spaces are preserved. No bone marrow edema or marrow replacing process. There are some mild degenerative endplate changes at the lower thoracic spine, as well as moderate degenerative osteophyte formation throughout the thoracic spine. No disk herniations. No central canal or neural foraminal stenosis. IMPRESSION: 1. Thoracic spondylosis. 2. Stable chronic right lower lobe pulmonary infiltrates.
--- NOTE | 2016-12-04 15:50 | Diag Imaging Result Document ---
PROCEDURE NAME: MRI LUMBAR SPINE W/O CONTRAST - 12/04/2016 MRI LUMBAR SPINE: COMPARISON: CT abdomen and pelvis, 12/01/2016. FINDINGS: There is straightening of the normal lordosis. There is rotary scoliosis and mild dextroscoliosis. No bone marrow edema or fracture. There is extremely severe degenerative narrowing at L2-3 and L3-4. The conus is seen at L1 and appears normal. At L-1-2, there is a disk bulge, but no stenosis. At L2-3, there is a disk bulge and facet hypertrophy. There is mild central canal stenosis and moderate bilateral neural foraminal stenosis. At L3-4, there is a disk bulge and facet hypertrophy. There is moderate central canal stenosis. There is moderate left and severe right neural foraminal stenosis. At L4-5, there is a right parasagittal disk herniation. This impinges on the right lateral recess and descending L5 nerve root. There is mild central canal stenosis. There is moderate left and critical right neural foraminal stenosis. At L5-S1, there is a disk bulge and facet hypertrophy. No central canal stenosis. There is severe right neural foraminal stenosis. IMPRESSION: Extremely severe lumbar spondylosis. Disk herniation at L4-L5.
[2016-12-04] MEDS: CARAFATE LIQUID PO SCH ×2 (17:13→23:39)
[2016-12-04] MEDS: PROTONIX IV SCH (17:13)
[2016-12-04] MEDS ORDERED: NS NEB INH SCH (18:30)
[2016-12-04 18:52] LABS: ALLEN TEST YES; BE 6.2 mmoll (-3.0-3.0); BLOOD TYPE ARTERIAL; DRAW SITE L RADIAL; METHB 1.6 % (0.0-1.5); PCO2(98.6) 42 mmHg (35-45); PO2(98.6) 81 mmHg (60-100); SAMPLE BLOOD; SAO2 98.4 % (95.0-100.0); THB 13.6 g/dL (11.5-17.4); pH(98.6) 7.47 (7.35-7.45)
[2016-12-04 18:53] LABS: MODALITY CANNULA
[2016-12-04 18:57] LABS: URINE MICRO REVIEW NEEDED? NO; URINE SOURCE CATH
[2016-12-04 19:02] LABS: BILIRUBIN URINE NEGATIVE (NEGATIVE); BLOOD URINE MODERATE (NEGATIVE); COLOR YELLOW; GLUCOSE URINE NEGATIVE (NEGATIVE); LEUKOCYTES URINE SMALL (NEGATIVE); NITRITE URINE NEGATIVE (NEGATIVE); PH URINE 6.5; PROTEIN URINE 100 mg/dL (NEGATIVE); SP GRAVITY URINE 1.019; TURBIDITY URINE HAZY (CLEAR); UROBILINOGEN URINE 3 mg/dL (NORMAL)
[2016-12-04 19:03] LABS: UR EPITHELIAL CELLS <10 /HPF (<10); URINE BACTERIA NEGATIVE /HPF; URINE RBC TNTC /HPF (<10)
[2016-12-04] MEDS: ROCEPHIN 1 GM/NS 1 GM/50 ML IVPB IV SCH (19:30)
[2016-12-04] MEDS: SYMBICORT 80/4.5 MICROGM INHALER INH SCH (19:49)
[2016-12-04] MEDS: XOPENEX NEB INH SCH ×2 (19:49→22:44)
--- NOTE | 2016-12-04 20:36 | HISTORY AND PHYSICAL ---
ONCOLOGIST: Marko Mariano M.D. MUSIC PUBLISHER: Tami Rachel M.D. CHIEF COMPLAINT: The patient has been unable to walk and has been very dizzy lately. HISTORY OF PRESENT ILLNESS: Mr. 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 The patient's reports that over the last several weeks the patient has been complaining of severe dizziness and inability to walk. The patient has also been very off-balance when trying to ambulate. Over the course of this week the patient has gotten to a point where he cannot even stand or bear weight on his legs. Also the patient's appetite has been very poor according to the . The patient is currently on Keytruda for treatment of metastatic lung cancer. The Keytruda has resulted in several side effects according to the . The patient is also being treated for ulcerative colitis and is currently on a prednisone taper that is being managed by Dr. Rachel. The patient's reports that the patient did have an episode of blood in his stool yesterday but the bowel movement was solid. The patient has also been wheezing a lot more and has been noticeably more short of breath. The patient denies having any chest pain or headache. The patient has not had any recent syncopal episodes. The patient is on Coumadin for the pulmonary embolism and his INR is therapeutic today. PAST MEDICAL HISTORY: 1. Obstructive sleep apnea. 2. Hypothyroidism. 3. Metastatic lung cancer, on chemotherapy. ' 4. Hypertension. 5. COPD. 6. Pulmonary embolism with a saddle embolus on Coumadin. 7. History of prostate cancer status post prostatectomy. 8. GERD. 9. Ulcerative colitis. 10. AAA status post repair. PAST SURGICAL HISTORY: 1. Appendectomy. 2. Bilateral shoulder arthroplasty. 3. Prostatectomy. 4. Rhinoplasty. 5. AAA repair. SOCIAL HISTORY: The patient currently lives at home with his . The patient is an ex- smoker but no longer smokes. He denies any alcohol or illicit drug use. FAMILY HISTORY: Noncontributory. ALLERGIES: 1. Sulfa. 2. Clarithromycin. HOME MEDICATIONS: 1. Keytruda 50 mg IV given as directed. 2. Dilaudid 4 mg p.o. every 6 hours p.r.n. for pain. 3. Nexium 40 mg p.o. every morning. 4. Vitamin D3, 2000 units oral every morning. 5. Vitamin C 1000 mg oral every morning. 6. Prednisone taper. 7. KCl 10 mEq oral every morning. 8. Multivitamin 1 tab oral every morning. 9. Synthroid 100 mcg oral every morning. 10. Warfarin 5 mg oral at bedtime. 11. Carafate 1 g p.o. every 6 hours. REVIEW OF SYSTEMS: All review of systems are negative. Please refer to the history of present illness for pertinent positives and negatives. PHYSICAL EXAMINATION: VITAL SIGNS: Temperature 97.7 degrees, blood pressure 144/80, heart rate 101, respirations 20, O2 saturations 94% on 4 L nasal cannula. GENERAL: This is a chronically ill-appearing male, lying on the stretcher, in no acute distress. HEAD: Normocephalic, atraumatic. SKIN: No rashes. No lesions. Normal capillary refill. NECK: Supple. No JVD. No lymphadenopathy. LUNGS: Bilateral expiratory wheezes. No crackles, no rales. Equal air entry bilaterally. HEART: S1, S2 normal. Tachycardic. ABDOMEN: Positive bowel sounds. Soft, nontender, nondistended. EXTREMITIES: No edema. No cyanosis. No calf tenderness. NEUROLOGIC: The patient is awake and alert. He is able to move all 4 extremities. No focal neurologic deficits noted. LABS: 1. White blood cell count 5.2, hemoglobin 13, hematocrit 40, platelets 130,000, INR 2.6. ABG: pH of 7.4, pCO2 42, PO2 81 bicarb 29, sodium 138, potassium 3.4, chloride 97, CO2 30, BUN 18, creatinine 0.8, glucose 93. Albumin 3.4, and vitamin D 28. TSH 20.9, free T4 of 0.8, folate 27. 2. UA negative. IMAGING STUDIES: 1. Head CT reveals stable advanced chronic changes 2. MRI of the lumbar spine reveals severe lumbar spondylosis. L4-L5 disc herniation. 3. MRI of the thoracic spine. Thoracic spondylolysis. A chest x-ray revealed mild left basilar atelectasis. ASSESSMENT AND PLAN: 1. Acute chronic obstructive pulmonary disease exacerbation. We will start the patient on bronchodilator therapy and IV antibiotics. We will continue the current prednisone dosage that the patient takes as outpatient. Will also continue on supplemental oxygen. 2. Generalized weakness. CT of the head as well as MRI of the lumbar spine and thoracic spine are unrevealing for an etiology of the patient's inability to walk. We will consult occupational therapy and physical therapy for further recommendations. We will also consult the neurologist. 3. Ulcerative colitis. Continue on prednisone. GI has been consulted. 4. Severe hypothyroidism. The patient is on Synthroid. This dosage is being adjusted by the patient's primary care physician. We will continue this dose for now. 5. Vitamin D deficiency. We will continue on vitamin D replacement. 6. Metastatic lung cancer. The patient is on Keytruda as outpatient. We will consult Oncology. 7. Pulmonary embolism. The patient's INR is therapeutic. We will continue warfarin. We will check the INR daily. 8. Obstructive sleep apnea. Aware. 9. Hypertension. Controlled. 10. The plan of care was discussed with the patient and his at the bedside. cc: Anju Maher MD
[2016-12-04] MEDS: ZOSYN 3.375 GM/NS 3.375 GM/50 ML IVPB IV SCH (21:51)
[2016-12-04] MEDS: COUMADIN PO SCH (21:52)
[2016-12-04] MEDS: MIRALAX PO SCH (21:52)
[2016-12-05] MEDS: XOPENEX NEB INH SCH ×6 (02:47→23:04)
[2016-12-05] MEDS: ZOSYN 3.375 GM/NS 3.375 GM/50 ML IVPB IV SCH ×4 (03:24→19:59)
[2016-12-05] MEDS ORDERED: CHLORASEPTIC SORE THROAT LOZENGE MT PRN (03:30)
[2016-12-05] MEDS: SODIUM CHLORIDE 0.9% INJ SCH (04:25)
[2016-12-05] MEDS: CARAFATE LIQUID PO SCH ×4 (04:25→23:23)
[2016-12-05] MEDS: PROTONIX IV SCH ×2 (04:25→17:38)
[2016-12-05 04:38] LABS: ALLEN TEST YES; BE 4.4 mmoll (-3.0-3.0); BLOOD TYPE ARTERIAL; DRAW SITE R RADIAL; METHB 1.2 % (0.0-1.5); O2(CT) 19.8 mL/dL (15.0-23.0); PCO2(98.6) 43 mmHg (35-45); PO2(98.6) 75 mmHg (60-100); SAMPLE BLOOD; SAO2 97.6 % (95.0-100.0); pH(98.6) 7.44 (7.35-7.45)
[2016-12-05 04:40] LABS: MODALITY CANNULA
[2016-12-05] MEDS: SYNTHROID PO SCH (06:19)
[2016-12-05] MEDS: SPIRIVA INH SCH (07:21)
[2016-12-05] MEDS: SYMBICORT 80/4.5 MICROGM INHALER INH SCH ×2 (07:21→19:46)
[2016-12-05 07:37] LABS: MANUAL DIFF NEEDED? NO
[2016-12-05 07:46] LABS: BASO% 0.2 % (0.0-0.8); HEMATOCRIT 38.5 % (42.0-52.0); HEMOGLOBIN 12.7 g/dL (14.0-18.0); IMM GRAN# 0.11 X1000 (0.0-0.04); IMM GRAN% 2.5 % (0.0-0.5); LYMPH# 0.41 X1000 (1.2-3.4); LYMPH% 9.2 % (20.5-51.1); MONO% 4.5 % (1.7-9.3); MPV 8.6 FL (7.4-10.4); NEUT% 83.6 % (42.2-75.2); PLT 135 X1000 (130-400); RBC 3.97 XMIL (4.7-6.1)
[2016-12-05 07:56] LABS: INR 2.35; PROTIME 26.1 Seconds (9.2-11.7)
[2016-12-05 08:07] LABS: AGAP 14; ALBUMIN 3.4 g/dL (3.5-5.0); ALKALINE PHOSPHATASE 63 U/L (32-122); BUN 20 mg/dL (8-22); CALCIUM 9.2 mg/dL (8.8-10.2); CHLORIDE 94 mmol/L (98-107); COSMO 274; GOT 15 U/L (10-34); GPT 29 U/L (10-44); POTASSIUM 4.3 mmol/L (3.5-5.1); SODIUM 134 mmol/L (136-145); TCO2 26 mmol/L (25-35); TOTAL BILIRUBIN 0.81 mg/dL (0.20-1.00); TOTAL PROTEIN 6.9 g/dL (6.3-8.3)
[2016-12-05] MEDS: VITAMIN D PO SCH (08:30)
[2016-12-05] MEDS: VITAMIN C PO SCH (08:30)
[2016-12-05] MEDS: CENTRUM SILVER PO SCH (08:30)
[2016-12-05] MEDS: MIRALAX PO SCH ×2 (08:30→19:59)
[2016-12-05] MEDS ORDERED: PREDNISONE PO SCH ×2 (09:00→21:00)
--- NOTE | 2016-12-05 09:21 | Diag Imaging Result Document ---
PROCEDURE NAME: CHEST-PORTABLE - 12/05/2016 PORTABLE CHEST X-RAY: COMPARISON: 12/04/2016. FINDINGS: Stable right chest port. Stable patchy, largely peripheral coarse interstitial opacities bilaterally, right greater than left. Stable right hilar enlargement. No new infiltrates. Lung volumes remain somewhat low. Stable shoulder replacements. IMPRESSION: No change from prior.
[2016-12-05] MEDS ORDERED: HALDOL IV PRN (12:54)
[2016-12-05] MEDS: SOLU-MEDROL IV SCH ×2 (13:10→18:54)
--- NOTE | 2016-12-05 13:35 | CONSULTATION ---
DATE OF CONSULTATION: 12/05/2016 REFERRING PHYSICIAN: Dr. Rachel and Dr. Maher. CHIEF COMPLAINT: Evaluation for COPD exacerbation, pneumonia in a patient with IBD with some steroid mood side effects and hyperglycemia trying to walk the thin lines in condition with pneumonia, COPD exacerbation. HISTORY OF PRESENTING ILLNESS: 76-year-old man with past history of sleep apnea, hypothyroidism, metastatic lung cancer on chemotherapy, IBD worsened with the chemotherapy, hypertension, COPD, PE on warfarin, prostate cancer status post prostatectomy, GERD, ulcerative colitis presented to the hospital for fatigue and was found to have pneumonia on chest x-ray and COPD exacerbation with wheezing. He is on p.o. steroids and was switching those to IV despite the chronic side effects of some agitation, maybe steroid psychosis and hyperglycemia. PAST MEDICAL HISTORY: As above including ulcerative colitis, GERD, prostate cancer status post prostatectomy, PE on Coumadin, COPD, hypertension, metastatic lung cancer on chemotherapy with side effects of IBD exacerbation being managed by Dr. Rachel, hypothyroidism, sleep apnea. PAST SURGICAL HISTORY: AAA repair, rhinoplasty, prostatectomy, bilateral shoulder arthroplasty and appendectomy. SOCIAL HISTORY: , living with . FAMILY HISTORY: Hypertension. ALLERGIES: Possibly clarithromycin and sulfa. Other allergies reviewed. HOME MEDICATIONS: Reviewed. He is on prednisone at home and Coumadin. HOSPITAL MEDICATIONS: Reviewed including ceftriaxone, Zosyn, I changed his prednisone to IV Solu- Medrol since he has tight wheezing. Added Haldol for agitation and in case of steroid psychosis. Other hospital medications reviewed including warfarin. REVIEW OF SYSTEMS: As detailed in history of presenting illness, otherwise noncontributory. PHYSICAL EXAMINATION: General exam: Awake, communicative. at the bedside. He was undergoing his echocardiogram during the evaluation. Vital Signs: Noted. He is tolerating nasal cannula. Chest exam: Bilateral tight wheezing. Cardiac Exam: S1, S2. Abdomen: Nontender on examination. Extremities: +1 pedal edema. Neurologic: Awake and communicative. LABS AND INVESTIGATIONS: Chest x-ray, pneumonia. ABG, CBC, CMP were all reviewed with pH of 7.44, pCO2 43, and PO2 of 75 on 28% oxygen. Creatinine 0.9, potassium 4.3, WBC 4.48. ASSESSMENT AND PLAN: A 76-year-old man with past history as above noticeable for lung cancer undergoing chemotherapy, inflammatory bowel disease, chronic obstructive pulmonary disease, pneumonia with chronic obstructive pulmonary disease exacerbation, side effects of steroids but for the minute they are needed as intravenous for the active wheezing. Has also history of sleep apnea and agree with antibiotics. I added BiPAP for sleep apnea. Discussed with Dr. Rachel and his . Thank you for the courtesy of this consult. cc: Abdoul George MD
[2016-12-05] MEDS ORDERED: DULCOLAX PO ONE (14:02)
--- NOTE | 2016-12-05 14:08 | PROGRESS NOTE ---
DATE: 12/05/2016 SUBJECTIVE: The patient is resting comfortably in bed. He is still wheezing and is short of breath. OBJECTIVE: Vital Signs: Temperature 97, blood pressure 156/84, heart rate 92, respirations 20, O2 saturations 98% on 2 L nasal cannula. General: This is an elderly male lying in bed in no acute distress. Head: Normocephalic, atraumatic. Heart: S1, S2. Normal. Regular rate and rhythm. Lungs: Diffuse expiratory wheezes in all lung gray. Abdomen: Positive bowel sounds. Soft, nontender, nondistended. Extremities: No edema. No cyanosis. No calf tenderness. Neurologic: The patient is alert and oriented. LABS: White blood cell count 4.4, hemoglobin 12, hematocrit 38, platelets 135,000, INR 2.3. Sodium 134, potassium 4.3, chloride 94, CO2 26, BUN 20, creatinine 0.9, glucose 155, calcium 9.2, magnesium 2, phosphorus 3.2, AST 15, ALT 29. ASSESSMENT AND PLAN: 1. Acute chronic obstructive pulmonary disease exacerbation. Continue on bronchodilator therapy and supplemental oxygen as well as steroids. Will consult Pulmonary for further recommendations. 2. Ulcerative colitis. Aware. 3. Pulmonary embolism with saddle embolus. The patient's INR is therapeutic. Continue on Coumadin. 4. Metastatic lung cancer. Aware. Oncology has been consulted. 5. Generalized weakness. Will continue with physical therapy and occupational therapy. We will also consult the neurologist for further assistance with the patient's persistent lower extremity weakness. 6. Vitamin D deficiency. Continue on vitamin D replacement. 7. Severe hypothyroidism. Continue on Synthroid. 8. Hypertension. Controlled. cc: Anju Maher MD
--- NOTE | 2016-12-05 14:27 | CONSULTATION ---
DATE OF CONSULTATION: 12/05/2016 REASON FOR CONSULTATION: Metastatic lung cancer, the patient is known. HISTORY OF PRESENT ILLNESS: Mr. Mota is a 76-year-old male who is known to Dr. Mariano as he is currently treating him for metastatic lung cancer. He presented complaining of severe dizziness and also the inability to walk. He has now been admitted for further evaluation and treatment. During the initial workup, the patient had an MRI of the thoracic and lumbar spine as well as a head CT which were all negative and would not explain any of his neurologic symptoms. The patient has an O2 saturation of 94% on room air when he presented. He has wheezing throughout bilaterally. He is currently being treated for acute COPD exacerbation. The patient has been in the hospital, in rehab and now back in the hospital over the past several weeks. He recently had a CT of chest, abdomen and pelvis for restaging which appeared to be overall stable to improved on 11/24/2016. He also has known brain metastasis, and his last MRI on 08/18/2016 was within normal limits. The patient continues to report that he feels like he cannot get a good breath. His O2 saturation is 97% on nasal cannula. PAST MEDICAL HISTORY: 1. Obstructive sleep apnea. 2. Hypothyroidism. 3. Metastatic lung cancer. 4. Hypertension. 5. COPD. 6. PTE. 7. History of prostate cancer. 8. GERD. 9. Ulcerative colitis. 10.AAA. PAST SURGICAL HISTORY: 1. Status post appendectomy. 2. Bilateral shoulder replacements. 3. Prostatectomy. 4. Rhinoplasty. 5. AAA repair. SOCIAL HISTORY: The patient currently lives with his . He is an ex-smoker and has no history of alcohol or drug use. FAMILY HISTORY: Positive for lung, ovarian and colon cancer. His father had colon cancer, and his sisters, one each had lung and then another one had ovarian cancer. REVIEW OF SYSTEMS: As per the HPI. All other systems negative or noncontributory. PHYSICAL EXAMINATION: Vital signs: Temperature is 97.4, heart rate 92, respirations 20, blood pressure 156/84, O2 saturation 97% on 2 L nasal cannula. General: This is a male lying in the hospital bed, in no acute distress. HEENT: Pupils are equal, round and reactive. Ears, nose and throat negative. Mouth: Oral mucosa appears to be normal. Trachea is midline. Cardiovascular: S1 and S2 heard. No murmurs, gallops or rubs appreciated. Regular rate and rhythm. Respiratory: Wheezing throughout. Normal respiratory effort. Gastrointestinal: Abdomen is soft and nondistended. Positive bowel sounds. Musculoskeletal: No bony abnormalities are noted. Extremities: No swelling or edema noted. Neurologic: The patient is alert and oriented x3 with no focal motor deficits. DIAGNOSTIC DATA: White blood cells are 4.48, hemoglobin 12.7, hematocrit 38.5, platelets 135. PT and INR are 26.1 and 2.35, respectively. Sodium is 134, potassium 4.3, chloride 94, CO2 is 26, BUN is 20, creatinine 0.9, glucose 155. Head CT with no new changes. Thoracic spine MRI with thoracic spondylosis. Lumbar spine MRI with extremely severe lumbar spondylosis. Disk herniation at L4-L5. ASSESSMENT AND PLAN: 1. Metastatic lung cancer. The patient is currently receiving Keytruda. His last dose was on 11/26/2016. 2. Acute chronic obstructive pulmonary disease exacerbation. The patient is currently on IV antibiotics as well as some steroids and nebulizer treatments. Most recent chest x-ray was overall stable. Continue current management. Consider getting CT of the chest if no improvement or to rule out any pneumonitis. 3. Dizziness and weakness. Head CT was negative. The patient does have known brain metastasis. No acute changes on that CT of the head. 4. Inability to walk. According to the patient's , this has been ongoing for several weeks. It will come and go. MRI of the lumbar and thoracic spine do not show any cord compression but are positive for some arthritic changes. Neurology has been consulted. 5. Ulcerative colitis. Continue current management. 6. History of pulmonary thromboembolism. The patient is currently on Coumadin, therapeutic at 2.35. We will continue to follow along and adjust treatment plan per the patient's hospital course. Dictated by NANI Haile for Liliane Gandhi MD cc: Liliane Gandhi MD
[2016-12-05] MEDS: LIALDA PO SCH ×2 (14:55→15:56)
--- NOTE | 2016-12-05 15:23 | PROGRESS NOTE ---
DATE: 12/05/2016 SUBJECTIVE: The patient remains significantly short of breath. His chest x- ray is consistent with pneumonia. From a gastrointestinal standpoint, he continues to have significant constipation resulting in abdominal bloating. He denies blood per rectum. He is asking for a laxative. He reports that his appetite is considerably decreased, but he denies nausea with vomiting. OBJECTIVE: On exam, his blood pressure is 156/84, pulse of 92, respiration 20, temperature 97.8. On pulmonary exam, he has inspiratory and expiratory wheezes. On cardiovascular exam, he has a regular rhythm with no gallops or rubs. Abdominal exam reveals normoactive bowel sounds. The abdomen is soft and nontender with central adiposity. Objective data reveals a hemoglobin of 12.7 with hematocrit of 38.5 and a white count of 4.48. Has 135,000 platelets. His PT is 26.1 with an INR of 2.35. His sodium is 134, potassium 4.3, chloride 94, CO2 26, BUN 20, creatinine 0.9, with a glucose of 155. Calcium is 9.2, phosphorus 3.2, magnesium 2.0, total bilirubin 0.81, AST 15, ALT 29, alkaline phosphatase 63, total protein 6.9, albumin 3.4. His CK is 28 with a normal troponin. RECOMMENDATION: 1. With regard to his ulcerative colitis, it would be ideal to wean his steroids. However, due to his pneumonia and presumed chronic obstructive pulmonary disease exacerbation , I would halt his tapering dose. 2. Resume his treatment for his ulcerative colitis. I will begin Lialda 4.8 grams daily. 3. Continue Protonix and Carafate as you are doing. 4. Continue antibiotics. 5. Administer Dulcolax 10 mg po now. I will begin Amitiza 24 mcg po BID. 6. Additional recommendations to follow based on his clinical course. cc: MD Marko Salcedo MD Katherine Takundwa, MD MTDD
--- NOTE | 2016-12-05 15:39 | ECHO REPORT ---
ORDER DATE: 12/05/2016 INDICATION FOR THE STUDY: Metastatic lung cancer. Dyspnea. FINDINGS: 1. Right atrium appears normal in size. 2. Trace tricuspid regurgitation identified. RV systolic pressure 22. 3. Normal RV size and systolic function. 4. No significant pulmonic insufficiency. 5. Normal left atrial size at 3.7 cm. 6. No mitral valve prolapse. No significant mitral regurgitation is identified. 7. Left ventricle appears normal in size with an end-diastolic dimension of 3.9. There is mild bordering on moderate left ventricular hypertrophy with a posterior and interventricular septal thickness 1.4 cm each. Normal LV systolic function with a calculated EF of 68%, normal wall motion. 8. Aortic valve opens well and appears trileaflet. No evidence of stenosis or insufficiency. 9. The aorta appears normal in visualized segments. 10. No pericardial effusion identified. cc: MD Anju Rosales MD
--- NOTE | 2016-12-05 16:02 | CONSULTATION ---
DATE OF CONSULTATION: 12/04/2016 REFERRING PHYSICIAN: Anju Maher M.D. PRIMARY PROVIDER: Marko Mariano M.D. INDICATION FOR CONSULTATION: 1. Weakness. 2. Known history of ulcerative colitis. 3. Known history of metastatic lung cancer. HISTORY OF PRESENT ILLNESS: The patient is a 76-year-old white male who was been followed in our clinic for the last few years. He has had a complicated course including the diagnosis of lung cancer, pulmonary emboli, DVT and early dementia. Most recently, he developed enterocolitis following a course of Keytruda for his lung cancer. He was placed on IV steroids and continued on his Asacol for treatment of his ulcerative colitis. He had symptomatic improvement with resolution of the bloody diarrhea. He was transferred to rehab on oral prednisone 40 mg per day. He began to have diarrhea when his prednisone was being tapered. At rehab, his prednisone was increased to 80 mg in the morning and 20 mg at night. Our office received a call from the rehab facility to assist with managing his prednisone. According to the family, the patient was doing well on a tapering dose. He received another dose of Keytruda approximately a week and half ago. His posttreatment course has been complicated by severe abdominal pain and weakness. He was evaluated in the emergency room on 12/01/2016. He was also noted at that time to have a cough productive of yellow-green sputum. He underwent a CT scan that revealed complete resolution of his colitis. He had a small endo leak of contrast from his aortic stent/graft into the [place] aorta but there was no ballooning of the aorta and there were no other acute findings. It was stable from his previous CT exam. His chest x-ray was remarkable for atelectasis versus an early infiltrate in the left base. Because his pain resolved while he was in the emergency room, he was discharged to home. However, on 12/04/2016, he was unable to stand and use his legs. He was brought by ambulance back to the emergency room. He has since been found to have a pneumonia in the left lower lobe. The MRI of his back and spine was remarkable for spondylosis and disk herniation at L4-L5. His thoracic spine MRI is remarkable for pulmonary infiltrates and spondylosis. He is currently being treated for new onset pneumonia. From a GI perspective, he reports constipation. He had a single episode of a formed stool with blood on the outside of the stool. There has been no diarrhea or blood mixed in the stool. He reports resolution of his abdominal pain since his emergency room visit on 12/01/2016. We are asked to participate in his care. PAST MEDICAL HISTORY: 1. Stage IV lung cancer. 2. Early dementia. 3. GERD. 4. UC. 5. Hyperlipidemia. 6. Obstructive sleep apnea. 7. Hypothyroidism. 8. COPD. 9. Status post AAA repair. 10. Prostate cancer. 11. DVT. 12. PE. 13. Colon polyps. 14. Diverticulosis. 15. Hemorrhoids. 16. Schatzki's ring. 17. Gastric antral vascular ectasia (GAVE). 18. Recurrent GI bleed. 19. Pulmonary embolus. 20. Obesity. PAST SURGICAL HISTORY: 1. Left shoulder surgery. 2. Appendectomy. 3. Right shoulder surgery. 4. Prostatectomy. 5. Rhinoplasty. FAMILY HISTORY: Noncontributory. SOCIAL HISTORY: He is and lives with his . They have 3 adult children. He previously smoked 1 pack per day for 50 years. He stopped smoking in 2013 at the time of his diagnosis of lung cancer. MEDICATION ALLERGIES: 1. Sulfa. 2. Clarithromycin. HOME MEDICATIONS: 1. Keytruda. 2. Dilaudid. 3. Nexium. 4. Vitamin D3. 5. Vitamin C. 6. Prednisone on a tapering dose. Currently receiving 40 mg in the morning and 20 mg at night. 7. Potassium chloride. 8. Multivitamin. 9. Synthroid. 10. Coumadin. 11. Carafate. REVIEW OF SYSTEMS: Remarkable for fatigue, shortness of breath, cough, and abdominal discomfort due to constipation. PHYSICAL EXAMINATION: He is ill-appearing and somewhat dyspneic. His blood pressure is 144/80, respirations are 26-28, pulse of 101, respiration 97. His oxygen saturation is 92-93% on room air.General: He is in mild respiratory distress. He appears older than his stated age. He appears extremely fatigued. HEENT: Negative for jaundice. His conjunctivae are pale. His oropharyngeal mucosal membrane is dry and he is currently mouth breathing with occasional pursed- lip breathing. Pulmonary: Lungs are tight. He has both inspiratory and expiratory wheezes with scattered rhonchi and rales. Cardiovascular Examination: Reveals a tachycardia with a regular rhythm. Abdominal Exam: Reveals normoactive bowel sounds. The abdomen is soft , nontender, with no rebound or guarding. There is central adiposity. Extremities: Bilaterally are negative for cyanosis, clubbing, or edema. Neurologic: He is alert and oriented x3 with appropriate mood, affect, and memory. He has developed a buffalo hump and Cushingnoid facies since his last exam. OBJECTIVE DATA: Remarkable for hemoglobin of 13.2 with hematocrit of 40.6, and a white count of 5.21. He has 130,000 platelets. His PT is 29.1 with an INR of 2.61 and a PTT of 55.8. Please note on 12/01/2016, his PT was 70.8 with an INR of 6.01 and a PTT of 57 (his Coumadin was held for 2 days with near normalization of his Coumadin level which is now therapeutic based on his INR). Serum chemistries on 12/04/2016 include a sodium of 138, potassium 3.4, chloride is 97, CO2 of 30, BUN of 18, creatinine 0.8 with a glucose of 93. His calcium is 8.4, total bilirubin 0.99, AST is 17, ALT of 34, alkaline phosphatase 64, CK of 42, total protein 6.6, albumin of 3.4, troponin of less than 0.010 and a BMP of 260, plasma lactate of 1.1, vitamin B12 of 1225, folate of 27.8, vitamin D of 28.8, TSH of 20.92. IMPRESSION: 1. Clinically, the patient appears to have a COPD exacerbation and/or pneumonia. 2. Ulcerative colitis. 3. Constipation. 4. Supratherapeutic INR which is being corrected. 5. Ulcerative colitis. 6. Probable urinary tract infection. RECOMMENDATIONS: 1. From a GI standpoint, it is reasonable to begin tapering his prednisone even more. I will place him on 30 mg in the morning and 20 mg at night. However, in light of his COPD exacerbation, I would not taper his medications any further. We may need to consult with Pulmonary Medicine to determine if he actually needs a higher dose of prednisone temporarily. I am somewhat concerned about this because he is developing cushingoid features. He has had hyperglycemia which we treated while he was in rehab. However, this may be a necessary action once we weigh the risks benefits in this high-risk patient with a COPD exacerbation. 2. I will begin MiraLAX 17 g p.o. b.i.d. for his constipation. He may require a dose of Dulcolax and a maintenance bowel program if he remains constipated tomorrow. 3. For his ulcerative colitis, continue the prednisone. I will discuss with Dr. Mariano his anti- inflammatory regimen. He was previously on Asacol. It appears to have been discontinued since our last clinic visit. I recommend a trial of Lialda 4.8 g if there is no contraindication. I will discuss with the team on 12/05/2016. 4. The patient's urine is very dark and cloudy and appears to have the presence of blood in the ostomy bag at the bedside. Therefore, the nurse has requested a urinalysis to be sent for culture as it is worrisome for urinary tract infection which will require IV antibiotics. 5. I will place patient on a GI soft diet as tolerated. 6. Please monitor his CRP level so we are able to assess his degree of inflammation. This should correlate with clinical response to treatment for his pneumonia as well as for his ulcerative colitis. 7. Additional recommendations to follow based on clinical course. cc: MD Marko Tang MD Jeanette Keith, MD MTDD
[2016-12-05] MEDS: ROCEPHIN 1 GM/NS 1 GM/50 ML IVPB IV SCH (17:39)
[2016-12-05] MEDS: COUMADIN PO SCH (19:59)
[2016-12-06] MEDS: CARAFATE LIQUID PO SCH ×5 (00:27→22:24)
[2016-12-06] MEDS: ZOSYN 3.375 GM/NS 3.375 GM/50 ML IVPB IV SCH ×4 (02:10→20:32)
[2016-12-06] MEDS: SOLU-MEDROL IV SCH ×4 (02:11→20:31)
[2016-12-06] MEDS: XOPENEX NEB INH SCH ×6 (03:23→22:50)
[2016-12-06] MEDS: SYNTHROID PO SCH (06:08)
[2016-12-06] MEDS: PROTONIX IV SCH ×2 (06:08→17:33)
[2016-12-06] MEDS: SODIUM CHLORIDE 0.9% INJ SCH (06:08)
[2016-12-06] MEDS: SPIRIVA INH SCH (07:28)
[2016-12-06] MEDS: SYMBICORT 80/4.5 MICROGM INHALER INH SCH ×2 (07:28→19:25)
[2016-12-06 07:34] LABS: BASO% 0.2 % (0.0-0.8); HEMATOCRIT 36.8 % (42.0-52.0); HEMOGLOBIN 12.1 g/dL (14.0-18.0); IMM GRAN# 0.04 X1000 (0.0-0.04); IMM GRAN% 0.7 % (0.0-0.5); LYMPH# 0.37 X1000 (1.2-3.4); LYMPH% 6.1 % (20.5-51.1); MANUAL DIFF NEEDED? YES; MCH 31.4 PG (27-31); MCHC 32.9 g/dL (33-37); MCV 95.6 FL (81-99); MONO# 0.15 X1000 (0.11-0.59); MONO% 2.5 % (1.7-9.3); MPV 8.9 FL (7.4-10.4); NEUT% 90.5 % (42.2-75.2); PLT 151 X1000 (130-400); RBC 3.85 XMIL (4.7-6.1)
[2016-12-06 07:38] LABS: INR 3.47; PROTIME 39.5 Seconds (9.2-11.7)
[2016-12-06 08:24] LABS: SODIUM 140 mmol/L (136-145)
[2016-12-06 08:25] LABS: AGAP 16; BUN 21 mg/dL (8-22); CALCIUM 8.8 mg/dL (8.8-10.2); CHLORIDE 98 mmol/L (98-107); COSMO 290; POTASSIUM 4.1 mmol/L (3.5-5.1); TCO2 26 mmol/L (25-35)
[2016-12-06] MEDS: VITAMIN C PO SCH (09:03)
[2016-12-06] MEDS: CENTRUM SILVER PO SCH (09:03)
[2016-12-06] MEDS: LIALDA PO SCH (09:04)
[2016-12-06] MEDS: MIRALAX PO SCH ×2 (09:05→20:32)
[2016-12-06 09:11] LABS: BANDS 12 % (0-1); LYMPHS 6 % (21-51); MONO 2 % (1-9)
[2016-12-06] MEDS: DILAUDID PO PRN (10:18)
--- NOTE | 2016-12-06 16:44 | PROGRESS NOTE ---
DATE: 12/06/2016 SUBJECTIVE: The patient is resting comfortably in bed. His shortness of breath has improved and he is not wheezing anymore. OBJECTIVE: Vital Signs: Temperature 97.6 degrees, blood pressure 144/89, heart rate 89, respirations 20. O2 saturations 99% on 2 L nasal cannula. General: This is a morbidly obese male, lying in bed, in no acute distress. Head: Normocephalic, atraumatic. Heart: S1, S2 normal. Regular rate and rhythm. Lungs: Clear to auscultation bilaterally. No crackles. No rales. Abdomen: Positive bowel sounds. Soft, nontender, nondistended. Extremities: No edema. No cyanosis. No calf tenderness. Neurologic: The patient is awake and alert. LABS: White blood cell count 6, hemoglobin 12, hematocrit 36, platelets 151,000. INR 3.4. Sodium 140, potassium 4.1, chloride 98, CO2 26, BUN 21, creatinine 1, glucose 236. ASSESSMENT AND PLAN: 1. Acute chronic obstructive pulmonary disease exacerbation. Improved. The patient is no longer wheezing. Continue on bronchodilator therapy, IV steroids, and supplemental oxygen. 2. Acute pulmonary embolism. The patient's INR is 3.4 today. We will hold the patient's warfarin dose for today and repeat the INR in the morning. 3. Ulcerative colitis. Aware. 4. Constipation. The patient is on scheduled laxatives. 5. Metastatic lung cancer. The patient is on chemo as outpatient. Oncology is following. 6. Generalized weakness. We will continue with physical therapy and occupational therapy. Neurology has also been consulted. 7. Vitamin D deficiency. Continue on vitamin D replacement. 8. Severe hypothyroidism. Continue on Synthroid. 9. Hypertension. Controlled. cc: Anju Maher MD
[2016-12-06] MEDS: ROCEPHIN 1 GM/NS 1 GM/50 ML IVPB IV SCH (17:33)
--- NOTE | 2016-12-06 18:53 | CONSULTATION ---
DATE OF CONSULTATION: 12/06/2016 HISTORY OF PRESENT ILLNESS: Mr. Mota was admitted a few days ago with reported weakness in the legs to the point that he could not stand or walk. History from his attentive family and from the patient himself is that he has been feeling weak in the legs for several months , gradually getting a little bit worse, equal right and left. He has tended to be weaker transiently after a Keytruda infusion. He had Keytruda 3 days ago. He seemed weaker after that. This reached the point that, for the 1st time, he could not stand. He required very vigorous assistance from family to get to the hospital. He has continued to be strong in the arms. Workup here includes MRI scans of the lumbar and thoracic spine showing some degenerative changes but nothing more definite. There is reported to be L4-L5 right parasagittal disk herniation. Noncontrast CT of the head was reported to show extensive microangiopathic changes but nothing new, nothing significantly changed compared to 12/01/2016 scan. Lab work showed CK 42. Sedimentation rate 59. He takes thyroid medicine and lab showed elevated TSH and low T4. In the recorded history, there is reportedly brain metastasis but CT was negative as mentioned above. This was a noncontrast scan. I am not sure about recent imaging outside the hospital. There is computer record of 10/19/2016 brain MRI with and without contrast reported to show no evidence of metastatic disease. On exam, Mr. Mota is awake, alert, attentive and appropriate. Speech is minimally dysarthric but easily understood. Language function is intact. I did not test his cognitive function. He has full visual gray tested grossly. Facial motility is diminished bilaterally. Nasal labial folds are little bit asymmetric without any remarkable focal motility deficit. Gag is intact. Tongue is midline. He splints the left shoulder more than the right. Power is good in the arms and legs. Tone is equal in the limbs. Reflexes are absent at the knees and ankles bilaterally. Plantar response is silent bilaterally. He reports diminished light touch and pinprick appreciation in a stocking pattern bilaterally extending to about the knee bilaterally. He has good pinprick appreciation on testing across the trunk. Proprioception is good at the great toe MTP joint bilaterally. I did not ask him to stand or walk. IMPRESSION: Reported weakness in the legs but no definite loss of motor power on bedside testing. He has evidence of peripheral neuropathy which may contribute to unsteady gait. He may be limited by apraxia which might be associated with cognitive impairment/dementia. All of this might be temporarily worse following Keytruda infusion. I do not see anything remarkable on the chemistry profile, other than the thyroid numbers as mentioned. He has been taking steroid medicine for some time but clinical findings are not typical of steroid myopathy. I wonder about a paraneoplastic syndrome but, again, I do not find any major motor deficit in the legs. I do not have any urgent suggestion. If this is transient Keytruda effect, time should be on his side. We might consider EMG study later. Further plans will depend on his clinical course. Thanks for asking me to see Mr. Mota. cc: MD ABISAI Zuniga III
[2016-12-07] MEDS: XOPENEX NEB INH SCH ×3 (03:05→11:12)
[2016-12-07] MEDS: ZOSYN 3.375 GM/NS 3.375 GM/50 ML IVPB IV SCH ×4 (03:28→20:40)
[2016-12-07] MEDS: PROTONIX IV SCH ×2 (05:37→17:08)
[2016-12-07] MEDS: CARAFATE LIQUID PO SCH ×3 (05:38→17:07)
[2016-12-07] MEDS: SOLU-MEDROL IV SCH ×3 (05:38→17:07)
[2016-12-07] MEDS: SODIUM CHLORIDE 0.9% INJ SCH ×2 (05:38→17:08)
[2016-12-07 07:11] LABS: INR 4.83; PROTIME 56.1 Seconds (9.2-11.7)
[2016-12-07 07:15] LABS: HEMATOCRIT 36.1 % (42.0-52.0); IMM GRAN# 0.11 X1000 (0.0-0.04); IMM GRAN% 1.3 % (0.0-0.5); LYMPH# 0.47 X1000 (1.2-3.4); LYMPH% 5.4 % (20.5-51.1); MANUAL DIFF NEEDED? YES; MCH 31.9 PG (27-31); MCHC 33.2 g/dL (33-37); MONO# 0.49 X1000 (0.11-0.59); MONO% 5.7 % (1.7-9.3); MPV 8.7 FL (7.4-10.4); NEUT% 87.6 % (42.2-75.2); PLT 151 X1000 (130-400); RBC 3.76 XMIL (4.7-6.1)
[2016-12-07 07:18] LABS: AGAP 14; BUN 18 mg/dL (8-22); CALCIUM 9.3 mg/dL (8.8-10.2); CHLORIDE 96 mmol/L (98-107); COSMO 284; POTASSIUM 4.4 mmol/L (3.5-5.1); SODIUM 137 mmol/L (136-145); TCO2 27 mmol/L (25-35)
[2016-12-07 07:30] LABS: BANDS 8 % (0-1); LYMPHS 2 % (21-51); MONO 2 % (1-9)
[2016-12-07] MEDS: SYMBICORT 80/4.5 MICROGM INHALER INH SCH ×2 (07:36→19:05)
[2016-12-07] MEDS: SPIRIVA INH SCH (07:36)
[2016-12-07] MEDS: VITAMIN C PO SCH (09:12)
[2016-12-07] MEDS: LIALDA PO SCH (09:12)
[2016-12-07] MEDS: MIRALAX PO SCH ×3 (09:12→20:41)
[2016-12-07] MEDS: CENTRUM SILVER PO SCH (09:12)
[2016-12-07] MEDS ORDERED: VITAMIN K PO ONE (09:21)
--- NOTE | 2016-12-07 10:13 | Diag Imaging Result Document ---
PROCEDURE NAME: CHEST-1 VIEW - 12/07/2016 PORTABLE CHEST, 12/07/2016 AT 0830 HOURS: The lungs are generally better expanded than on 12/05/2016 and the opacities present particularly in the right upper lobe perihilar region have improved. This is probably more due to the inspiration than anything else. IMPRESSION: Improved inspiration.
--- NOTE | 2016-12-07 11:09 | PROGRESS NOTE ---
DATE: 12/07/2016 SUBJECTIVE: Mr. Mota is a 76-year-old male, ill-appearing. He is lying in bed. He reports not feeling well. He feels worse than yesterday. states that his sputum production is now less than it has been and has reports of increased the wheezing. States his appetite is good. He is tolerating BiPAP well. OBJECTIVE: Vital Signs: Temperature is 98.3. Pulse is 75, respiratory rate 14 , blood pressure 128/68 with a saturation of 96% on 2 L. General: Mr. Mota is a 76-year-old male, lying in bed, just not feeling well but is able answer questions appropriately. Cardiovascular: S1, S2. Regular rate and rhythm. No rubs, gallops, murmurs. Pulmonary: Wheezes expiratory greater in the right upper lung bilaterally. Decreased breath sounds in the bases. Tolerating nasal cannula. No accessory muscle use or work of breathing noted. GI: Soft, tender in the right upper quadrant. Positive bowel sounds x4. : Martínez with pink-tinged urine but is patent. Extremities: No edema noted. +2 dorsalis pedal pulses. LABORATORY DATA: White blood cells 8000, hemoglobin 12, hematocrit 36, platelet count 151,000. Sodium 137, potassium 4.4, BUN 18, creatinine is 1.0, glucose 239. INR is 4.83 up from 3.47 yesterday. ASSESSMENT AND PLAN: 1. Chronic obstructive pulmonary disease exacerbation. Continue nebulizers as ordered. Will add acetylcysteine as he states he has not had as much productive cough as he has been, and he followed by Dr. George. Continue antibiotics, IV steroids and O2. Chest x- ray showed improved aeration. 2. Obstructive sleep apnea. Continue BiPAP at night. 3. History of pulmonary embolism. Today he is supratherapeutic on his INR. He will receive 2.5 mg p.o. vitamin K and continue to hold Coumadin and continue with daily INRs. 4. Ulcerative colitis. Stable with constipation. Dr. Rachel is following. Daily CRPs to monitor inflammatory status. Continue that as ordered. Continue Lialda. 5. Metastatic lung cancer followed by oncology. Chemo treatments as outpatient. 6. Generalized weakness. OT PT Dr. Riggs with no new suggestions. He said to consider EMG study as outpatient. 7. Vitamin D deficiency. Continue vitamin D replacement. 8. Severe hypothyroidism. Continue on Synthroid. 9. Hypertension controlled. 10. Hyperglycemia. Steroid induced. We will go ahead and start sliding scale insulin and pattern blood glucoses and add a hemoglobin A1c for in the morning. 11. Anemia. Continue to monitor for now. 12. He does have some hematuria so we will have to watch that. Dictated by NURYS Shirley for Eloy Howard MD cc: NURYS Shirley MD pt examined, agree with above, wean streoids as tolerated, coagulopathy management discussed with nurys BARONE
[2016-12-07] MEDS: HUMULIN R SUBQ SCH ×3 (11:37→21:00)
[2016-12-07] MEDS ORDERED: DUONEB (A & A) INH PRN (14:15)
--- NOTE | 2016-12-07 15:24 | PROGRESS NOTE ---
DATE: 12/07/2016 SUBJECTIVE: The patient states that he does not feel as well today. He was noted to have wheezing and shortness of breath overnight. He remains constipated but notes that there is no blood in the stool. He denies abdominal pain, nausea and vomiting. OBJECTIVE: General: On exam, he appears ill and older than his stated age. Vital signs: His blood pressure is 132/82, pulse is 74, respiration 19, temperature of 97.5 degrees. HEENT: Negative for jaundice. His oropharyngeal mucosal membranes are moist. Pulmonary: He has inspiratory and expiratory wheezes. There are decreased breath sounds in the bases bilaterally. Cardiovascular Exam: Has regular rate and rhythm with no gallops or rubs. Abdominal Exam: Reveals normoactive bowel sounds. The abdomen is soft, nontender, with no rebound or guarding. Extremities: Bilaterally are remarkable for 1+ edema. OBJECTIVE DATA: Reveals a hemoglobin of 12.0 with hematocrit of 36.1 and a white count of 8.66. He has 151,000 platelets. His PT is 56.1 with an INR of 4.83. Sodium is 137, potassium 4.4, chloride 96, CO2 27, BUN 18, creatinine 1.0 with a glucose of 239. Calcium is 9.3. IMPRESSION: 1. Ulcerative colitis. 2. Constipation. 3. Anemia. 4. Protein calorie malnutrition. 5. Gastroesophageal reflux disease. 6. COPD exacerbation with pneumonia. 7. Supra-therapeutic INR. RECOMMENDATION: 1. Please continue Lialda for his ulcerative colitis. However, I reduced the dose from 4.8 g per day to 2.4 g per day in light of the constipation. 2. I will add MiraLAX 17 g p.o. twice daily. 3. Use Dulcolax as needed for constipation. 4. Continue prednisone for his COPD as well as his pneumonia. Once he is clinically stable, will plan to reduce his dose. 5. Continue Protonix and Carafate as you are doing for his upper GI symptoms. 6. Monitor hemoglobin and hematocrit. Transfuse as indicated. 7. Will defer to the primary team for management of his pneumonia and his hypercoagulable state. 8. Additional recommendations to follow based on his clinical course. cc: Eloy Howard MD [facility]
--- NOTE | 2016-12-07 15:54 | PROGRESS NOTE ---
DATE: 12/07/2016 SUBJECTIVE: Mr. Mota reports noticing that his legs are a little bit stronger today. We discussed the relatively minimal neurologic findings, including evidence of primarily sensory peripheral neuropathy and ataxia. I am not sure this explains all of his gait difficulty, but these problems could contribute to unsteady gait. We discussed further neuromuscular workup with EMG study. That is not urgent and can be considered later as an outpatient. I do not have any new suggestion from neurologic standpoint today. Thanks for asking me to see Mr. Mota. cc: Clay Riggs III, MD
[2016-12-07] MEDS: DUONEB (A & A) INH SCH ×3 (16:05→22:50)
[2016-12-07] MEDS: ROCEPHIN 1 GM/NS 1 GM/50 ML IVPB IV SCH (18:01)
[2016-12-07] MEDS: MUCOMYST 20% INH SCH (19:05)
[2016-12-08] MEDS: ZOSYN 3.375 GM/NS 3.375 GM/50 ML IVPB IV SCH ×4 (03:01→21:51)
[2016-12-08] MEDS: DUONEB (A & A) INH SCH ×6 (03:15→22:55)
[2016-12-08] MEDS: SODIUM CHLORIDE 0.9% INJ SCH ×2 (05:08→17:02)
[2016-12-08] MEDS: SOLU-MEDROL IV SCH ×4 (05:08→17:02)
[2016-12-08] MEDS: CARAFATE LIQUID PO SCH ×4 (05:09→17:02)
[2016-12-08] MEDS: PROTONIX IV SCH ×2 (05:09→17:02)
[2016-12-08] MEDS: SYNTHROID PO SCH (06:32)
[2016-12-08] MEDS: SPIRIVA INH SCH (07:24)
[2016-12-08] MEDS: SYMBICORT 80/4.5 MICROGM INHALER INH SCH ×2 (07:24→19:08)
[2016-12-08] MEDS: MUCOMYST 20% INH SCH ×2 (07:24→19:05)
[2016-12-08 07:36] LABS: BASO% 0.1 % (0.0-0.8); EOS# 0.02 X1000 (0.0-0.7); EOS% 0.3 % (0.0-10.0); HEMATOCRIT 36.4 % (42.0-52.0); HEMOGLOBIN 12.3 g/dL (14.0-18.0); IMM GRAN# 0.16 X1000 (0.0-0.04); LYMPH# 0.32 X1000 (1.2-3.4); MANUAL DIFF NEEDED? YES; MCH 32.5 PG (27-31); MCHC 33.8 g/dL (33-37); MCV 96.3 FL (81-99); MONO# 0.32 X1000 (0.11-0.59); NEUT% 89.6 % (42.2-75.2); PLT 142 X1000 (130-400); RBC 3.78 XMIL (4.7-6.1)
[2016-12-08 07:41] LABS: INR 2.75; PROTIME 30.8 Seconds (9.2-11.7)
[2016-12-08] MEDS: HUMULIN R SUBQ SCH ×4 (07:42→21:51)
[2016-12-08 07:45] LABS: AGAP 12; BUN 18 mg/dL (8-22); CALCIUM 9.2 mg/dL (8.8-10.2); CHLORIDE 97 mmol/L (98-107); COSMO 282; SODIUM 137 mmol/L (136-145); TCO2 28 mmol/L (25-35)
--- NOTE | 2016-12-08 07:49 | Diag Imaging Result Document ---
PROCEDURE NAME: CHEST-PORTABLE - 12/08/2016 PORTABLE CHEST X-RAY, 12/08/2016: COMPARISON: 12/07/2016. FINDINGS: Stable right chest port in good position. Lung volumes are low. There is pulmonary vascular congestion. There is some ill-defined peripheral scarring stable from prior. Heart size is top normal. IMPRESSION: No change from prior.
[2016-12-08 08:08] LABS: HEMOGLOBIN A1C 5.9 % (4.8-6.0)
[2016-12-08 08:17] LABS: BANDS 4 % (0-1); LYMPHS 4 % (21-51); MONO 4 % (1-9)
[2016-12-08] MEDS: LIALDA PO SCH (08:51)
[2016-12-08] MEDS: VITAMIN C PO SCH (08:51)
[2016-12-08] MEDS: CENTRUM SILVER PO SCH (08:51)
[2016-12-08] MEDS: MIRALAX PO SCH (08:52)
[2016-12-08] MEDS ORDERED: COUMADIN PO SCH ×2 (12:00→21:00)
--- NOTE | 2016-12-08 13:18 | PROGRESS NOTE ---
DATE: 12/08/2016 SUBJECTIVE: The patient is still very weak but not really any worse per se than yesterday. His wheezing to me has improved. He is eating okay. Still overall weak though. OBJECTIVE: Blood pressure 147/71, heart rate of 82, respiratory 14, temperature 97.9 degrees, 92% on 2 L.Cardiovascular: Regular rate and rhythm. Pulmonary: Bilateral breath sounds. Clear to auscultation. GI: Soft, nontender, nondistended. Bowel sounds are positive. DATA: Hemoglobin and hematocrit 12 and 36, platelets 142,000. White count 7.9. INR is 2.75. Blood sugars have been [address] up to 348. CRP is 12.7. A1c is only 5.9, so this may just be steroid induced hyperglycemia. PROBLEM LIST: 1. Chronic obstructive pulmonary disease exacerbation. He is on nebulizers, Mucomyst, antibiotics. Dr. George is following. We are weaning steroids. 2. History of PE with coagulopathy. His INR is down. We have adjusted his Coumadin. 3. UC. He is currently on his regular medications. Dr. Rachel following. CRP is 12.7, which is really not that impressive but are checking them daily. It was 90.48 and it has come down, granted he is on steroids. 4. Steroid induced hyperglycemia. We will continue to follow. His A1c does not suggest long- standing hyperglycemia. This may be just related to steroids. He is on a sliding scale at this point. 5. Hypothyroidism which is probably a good portion of his dysfunctional status, it is just his profound hypothyroidism. He is on Synthroid. 6. Disposition. He will likely need some physical therapy. We will continue to monitor and follow closely. cc: Eloy Howard MD
--- NOTE | 2016-12-08 13:55 | PROGRESS NOTE ---
DATE: 12/08/2016 SUBJECTIVE: The patient states that he does not feel as well today since they reduced his dose of prednisone. He also reports diarrhea after taking the MiraLAX. Otherwise, he denies complaints. He and his were concerned about prognosis and what decisions they should be making. Currently, they plan to continue his current treatment course. OBJECTIVE: Vital Signs: On exam, his blood pressure is 147/71, pulse 78, respiration 18, temperature of 97.9 degrees. General: He is sitting in a chair eating lunch, therefore his physical exam was deferred. OBJECTIVE DATA: Reveals a hemoglobin 12.3 with hematocrit of 36.4, a white count 7.96. He has 142,000 platelets. His PT is 30.8 with an INR of 2.75. Sodium 137, potassium 4.0, chloride 97, CO2 28, BUN 18, creatinine 0.8 with a glucose 207. Calcium is 9.2 with a CRP of 12.77. His hemoglobin A1c is 5.9. RECOMMENDATION: 1. Continue Lialda. 2. We will discontinue the MiraLAX, which was prescribed for significant constipation. 3. He is currently receiving high-dose steroids. Therefore, I will encourage tapering as soon as it is clinically appropriate. 4. Continue current treatment plan. cc: Tami Rachel M.D. Marko Mariano M.D. Eloy Howard M.D. ABISAI
--- NOTE | 2016-12-08 14:27 | PROGRESS NOTE ---
DATE: 12/08/2016 Mr. Mota reports a sense that his legs have gotten a little bit stronger. He is certain there is nothing worse. I encouraged him to be careful with activities and to be attentive to therapy. We discussed EMG/NCV study as an outpatient and we can consider that electively. If he deteriorates, we can get work up done more urgently. Thanks for allowing me to follow Mr. Mota. cc: Clay Riggs III, MD
[2016-12-08] MEDS: ROCEPHIN 1 GM/NS 1 GM/50 ML IVPB IV SCH (17:52)
[2016-12-08] MEDS: DILAUDID PO PRN (22:05)
[2016-12-09] MEDS: CARAFATE LIQUID PO SCH ×3 (03:39→11:28)
[2016-12-09] MEDS: ZOSYN 3.375 GM/NS 3.375 GM/50 ML IVPB IV SCH ×4 (03:55→21:30)
[2016-12-09] MEDS: DUONEB (A & A) INH SCH ×6 (03:55→22:51)
[2016-12-09] MEDS: PROTONIX IV SCH ×2 (05:54→16:36)
[2016-12-09] MEDS: SODIUM CHLORIDE 0.9% INJ SCH ×2 (05:54→16:36)
[2016-12-09] MEDS: SOLU-MEDROL IV SCH ×3 (06:00→11:25)
[2016-12-09] MEDS: HUMULIN R SUBQ SCH ×4 (06:37→21:30)
[2016-12-09] MEDS: SYNTHROID PO SCH (06:37)
[2016-12-09 07:01] LABS: HEMATOCRIT 37.5 % (42.0-52.0); HEMOGLOBIN 12.4 g/dL (14.0-18.0); MCH 31.7 PG (27-31); MCHC 33.1 g/dL (33-37); MCV 95.9 FL (81-99); MPV 8.9 FL (7.4-10.4); RBC 3.91 XMIL (4.7-6.1)
[2016-12-09 07:07] LABS: INR 1.61; PROTIME 17.4 Seconds (9.2-11.7)
[2016-12-09] MEDS: MUCOMYST 20% INH SCH ×2 (07:17→19:14)
[2016-12-09] MEDS: SYMBICORT 80/4.5 MICROGM INHALER INH SCH ×2 (07:18→19:14)
[2016-12-09] MEDS: SPIRIVA INH SCH (07:18)
[2016-12-09 07:20] LABS: AGAP 12; BUN 17 mg/dL (8-22); CALCIUM 8.6 mg/dL (8.8-10.2); CHLORIDE 98 mmol/L (98-107); COSMO 281; POTASSIUM 3.6 mmol/L (3.5-5.1); SODIUM 138 mmol/L (136-145); TCO2 28 mmol/L (25-35)
[2016-12-09] MEDS: CENTRUM SILVER PO SCH (08:13)
[2016-12-09] MEDS: LIALDA PO SCH (08:13)
[2016-12-09] MEDS: VITAMIN C PO SCH (08:13)
--- NOTE | 2016-12-09 11:25 | PROGRESS NOTE ---
DATE: 12/09/2016 SUBJECTIVE: Mr. Hema Mota is a 76-year-old, male. He is in no acute distress and is able answer questions appropriately. His is at the bedside. He states he still feels weak in his lower extremities but his noticed that when he sat up to eat breakfast this morning, he was unable to control his core strength as it was also weak. He also states having frequent diarrhea. OBJECTIVE: Vital Signs: Temperature is 97.3 degrees, heart rate 85, respiratory rate 14, blood pressure 138/87. O2 saturation 95-100% on 2 L nasal cannula. General: Mr. Mota is a 76-year- old, male in no acute distress. Answering questions appropriately. Cardiovascular: S1, S2. Regular rate and rhythm. No rubs, gallops, murmurs. Pulmonary: Clear to auscultate bilateral breath sounds. No accessory muscle use or work of breathing noted. Currently on 2 L nasal cannula. GI: Tender in the left lower quadrant. Positive bowel sounds x4. Nondistended. Extremities: Trace edema noted in the lower extremities. There is hyperreflexia noted in the ankles bilaterally. Neurologic: Alert and oriented x4. Moves all extremities with 4/5 strength of the lower extremities and 5/5 strength in the upper extremities. Laboratory Data: White blood cells 7000, hemoglobin 12, hematocrit 37, platelet count 145,000. INR 1.61. Sodium 138, potassium 3.6, BUN 17, creatinine 0.8, glucose 159, calcium 8.6. CRP is down to 7. Imaging: He had a chest x-ray on 12/08/2016 which showed a stable right chest port, low lung volumes, pulmonary vascular congestion, ill-defined perihilar scarring but stable normal heart. ASSESSMENT AND PLAN: 1. Chronic obstructive pulmonary disease exacerbation. Continue nebulizers, Mucomyst. Dr. George is following. Steroids are being weaned. 2. History of pulmonary embolus with coagulation resumed. His INR is 1.61. We will check daily INRs, adjust as needed. 3. Ulcerative colitis. Continue medication. CRP continuing to decrease. Dr. Rachel is following. 4. Complaints of diarrhea. He has been on multiple antibiotics. We will order for a Clostridium difficile check. 5. Hypothyroidism. Continue Synthroid. 6. Hyperreflexia with lower extremity and core weakness. Dr. Riggs has seen. He recommends EMG as outpatient to check for nerve conduction studies and continue physical therapy. 7. 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 This could also be adding to his weakness. He is on chemotherapy. 8. Anemia, stable. 9. Steroid-induced hyperglycemia. Continue sliding scale insulin and pattern blood glucoses. Dictated by NURYS Shirley for Eloy Howard MD cc: NURYS Shirley MD pt examined, agree with above [facility] MTDD
[2016-12-09] MEDS: PREDNISONE PO SCH (15:05)
[2016-12-09] MEDS: ROCEPHIN 1 GM/NS 1 GM/50 ML IVPB IV SCH (18:49)
[2016-12-09] MEDS ORDERED: COUMADIN PO SCH (21:00)
[2016-12-10] MEDS: DUONEB (A & A) INH SCH ×6 (03:06→23:06)
[2016-12-10] MEDS: ZOSYN 3.375 GM/NS 3.375 GM/50 ML IVPB IV SCH ×4 (03:53→21:58)
[2016-12-10] MEDS: SODIUM CHLORIDE 0.9% INJ SCH (06:00)
[2016-12-10] MEDS: PROTONIX IV SCH ×2 (06:00→16:50)
[2016-12-10] MEDS: SYNTHROID PO SCH ×2 (06:11→06:12)
[2016-12-10] MEDS: HUMULIN R SUBQ SCH ×4 (06:41→21:59)
[2016-12-10] MEDS: SPIRIVA INH SCH (07:14)
[2016-12-10] MEDS: SYMBICORT 80/4.5 MICROGM INHALER INH SCH ×2 (07:14→19:47)
[2016-12-10] MEDS: MUCOMYST 20% INH SCH ×2 (07:15→19:46)
[2016-12-10 07:19] LABS: BASO% 0.3 % (0.0-0.8); HEMATOCRIT 38.2 % (42.0-52.0); HEMOGLOBIN 12.7 g/dL (14.0-18.0); IMM GRAN# 0.33 X1000 (0.0-0.04); IMM GRAN% 5.2 % (0.0-0.5); LYMPH# 0.53 X1000 (1.2-3.4); LYMPH% 8.4 % (20.5-51.1); MANUAL DIFF NEEDED? YES; MCH 31.8 PG (27-31); MCHC 33.2 g/dL (33-37); MCV 95.7 FL (81-99); MONO# 0.45 X1000 (0.11-0.59); MONO% 7.1 % (1.7-9.3); MPV 8.8 FL (7.4-10.4); PLT 153 X1000 (130-400); RBC 3.99 XMIL (4.7-6.1)
[2016-12-10 07:27] LABS: AGAP 13; ALBUMIN 3.2 g/dL (3.5-5.0); ALKALINE PHOSPHATASE 56 U/L (32-122); BUN 20 mg/dL (8-22); CHLORIDE 97 mmol/L (98-107); COSMO 284; GOT 17 U/L (10-34); GPT 45 U/L (10-44); POTASSIUM 3.6 mmol/L (3.5-5.1); SODIUM 139 mmol/L (136-145); TCO2 29 mmol/L (25-35); TOTAL BILIRUBIN 0.54 mg/dL (0.20-1.00); TOTAL PROTEIN 6.3 g/dL (6.3-8.3)
[2016-12-10 07:44] LABS: LYMPHS 10 % (21-51); MONO 2 % (1-9)
[2016-12-10] MEDS: VITAMIN C PO SCH (08:21)
[2016-12-10] MEDS: CENTRUM SILVER PO SCH (08:21)
[2016-12-10] MEDS: LIALDA PO SCH (08:21)
[2016-12-10] MEDS: PREDNISONE PO SCH (08:21)
[2016-12-10 09:31] LABS: INR 1.47; PROTIME 15.8 Seconds (9.2-11.7)
--- NOTE | 2016-12-10 11:10 | PROGRESS NOTE ---
DATE: 12/10/2016 SUBJECTIVE: Mr. Mota states that he feels much better today. He was able to hold himself in a sitting position on the side of the bed to eat breakfast. He still feels weakness from his knees down. States he is breathing much better, no other complaints. OBJECTIVE: Vital signs: Temperature 97.9, heart rate 98, respiratory rate 20, blood pressure 142/81, O2 saturation 93% on 2 L nasal cannula. General: Mr. Mota is a 76- year-old male in no acute distress answers questions appropriately. Cardiovascular: S1 , S2 regular rate and rhythm, no rubs, gallops or murmurs. Pulmonary: Clear to auscultation. Bilateral breath sounds decreased in the bases, no accessory muscle use or work of breathing noted. GI: Soft, nontender, nondistended, positive bowel sounds x4. Patient states diarrhea has improved. Extremities: About 4-1/2/6 strength in the lower extremities, 5/5 upper extremities. +2 dorsalis and radial pulses. Neurologic: Oriented X4. LABORATORY DATA: White blood cells 6000, hemoglobin 12, hematocrit 38, platelet count 153. INR 1.47. Sodium 139, potassium 3.6, BUN 20, creatinine 0.9, glucose 163, calcium 9.0. Phosphorus 2.6. Magnesium 2.0. Bilirubin 0.54. AST 17, ALT 45. CRP down from 7 down to 4. IMAGING: None. ASSESSMENT AND PLAN: 1. Chronic obstructive pulmonary disease exacerbation is resolved. Steroids continue to be weaned. Dr. George is following. Nonproductive cough. 2. History of pulmonary emboli with Coumadin resumed. His INR is down from 1.6 to 1.4 this morning, but after a second dose of Coumadin tomorrow should start increasing. Consider Lovenox to bridge. 3. Ulcerative colitis. CRP is normal. Dr. Rachel is following. 4. Diarrhea. The patient states this is improving. Clostridium difficile is negative. 5. Hypothyroidism. Apparently, under patient's home meds, Synthroid was put in as Synthroid 100 mcg per day, but the at the bedside and the patient both stated that he was actually taking 125 mcg at home. We started him on 125 with the thoughts that we were increasing, but apparently we were not, so Synthroid was increased to 150 mcg. He will need to have TSH/T4 in at least 4 weeks or more rechecked. 6. Hyperreflexia with lower extremity and core weakness which has improved. He is supposed to be followed by Dr. Riggs and have EMG studies as outpatient. 7. 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 He has had radiation to the brain, which could be adding to his weakness that he is experiencing. 8. Anemia, stable. 9. Steroid-induced hyperglycemia. Continue patterned blood glucoses and sliding scale insulin. Glucoses are improving since steroids have been decreased. Dictated by NURYS Shirley for Eloy Howard MD cc: NURYS Shirley MD pt examined, agree with above, plan for dc in am [facility]
[2016-12-10] MEDS: LOVENOX SUBQ SCH (12:17)
--- NOTE | 2016-12-10 16:20 | PROGRESS NOTE ---
DATE: 12/10/2016 SUBJECTIVE: The patient states that he feels better today. However, he has begun wheezing and having loose stools with blood since his prednisone was tapered to 40 mg per day. OBJECTIVE: General: On exam, he is in no acute distress. Vital Signs: His blood pressure is 142/81, pulse 98, respirations 20, temperature of 97.9. Pulmonary: He has the return of inspiratory and expiratory wheezes. However, he is able to take a much deeper breath than on admission. Cardiovascular: He has regular rate and rhythm with no gallops, murmurs or rubs. Abdominal Exam: Reveals normoactive bowel sounds. There is mild diffuse tenderness, which has returned. There is no rebound or guarding. There is central adiposity. OBJECTIVE DATA: Remarkable for hemoglobin of 12.7 with hematocrit of 38.2 and white count of 6.34. He has 153,000 platelets. His PT is 15.8, with an INR of 1.47. Sodium is 139, potassium 3.6, chloride 97, CO2 of 29, BUN 20, creatinine 0.9 with a glucose of 163. Calcium is 9.0, phosphorus 2.6, magnesium 2.0. Total bilirubin 0.54, AST 17, ALT 45, alkaline phosphatase 56. Total protein 6.3 and albumin 3.2 with a CRP of 4.55. IMPRESSION: 1. Ulcerative colitis. 2. Blood in stool. 3. Diarrhea. 4. Hyperglycemia secondary to prednisone. 5. New elevation in liver function tests. 6. Pneumonia with active wheezing. RECOMMENDATION: 1. I would hold his prednisone taper. In fact, I recommend increasing the dose to 50 mg per day without a taper until there is resolution of the blood in the stool and the diarrhea. 2. Continue antibiotics as you are doing. 3. He has had a single, elevated liver function test, which we will need to monitor. He is currently receiving ceftriaxone antibiotics, as well as multiple other medications that can theoretically increase his liver function tests. I will pursue further evaluation if the liver tests remain elevated. 4. Continue Lialda 2.4 g p.o. daily. 5. Please check a CRP in the morning to assess interval progress. He has had normalization, although he remains symptomatic. My concern is that it will begin to trend upward again and we should be mindful of his prednisone dose if that occurs. 6. Additional recommendations to follow based on his clinical course. cc: MD Marko Salcedo MD Eston G. Norwood III, MD Mamoun I. Najjar, MD MTDD
[2016-12-10] MEDS: DILAUDID PO PRN (18:28)
[2016-12-10] MEDS: ROCEPHIN 1 GM/NS 1 GM/50 ML IVPB IV SCH (18:29)
[2016-12-10] MEDS: COUMADIN PO SCH (21:59)
[2016-12-11] MEDS: LOVENOX SUBQ SCH ×3 (00:30→23:34)
[2016-12-11] MEDS: ZOSYN 3.375 GM/NS 3.375 GM/50 ML IVPB IV SCH ×4 (03:37→21:35)
[2016-12-11] MEDS: DUONEB (A & A) INH SCH ×6 (03:50→23:14)
[2016-12-11] MEDS: PROTONIX IV SCH ×2 (05:14→16:47)
[2016-12-11] MEDS: SODIUM CHLORIDE 0.9% INJ SCH ×2 (05:14→16:47)
[2016-12-11] MEDS: SYNTHROID PO SCH (06:56)
[2016-12-11] MEDS: HUMULIN R SUBQ SCH ×4 (06:56→21:35)
[2016-12-11 07:09] LABS: INR 1.73; PROTIME 18.8 Seconds (9.2-11.7)
[2016-12-11 07:17] LABS: BASO% 0.3 % (0.0-0.8); EOS# 0.01 X1000 (0.0-0.7); EOS% 0.2 % (0.0-10.0); HEMATOCRIT 38.1 % (42.0-52.0); HEMOGLOBIN 12.7 g/dL (14.0-18.0); IMM GRAN# 0.32 X1000 (0.0-0.04); IMM GRAN% 5.4 % (0.0-0.5); LYMPH# 0.66 X1000 (1.2-3.4); LYMPH% 11.1 % (20.5-51.1); MANUAL DIFF NEEDED? YES; MCH 32.2 PG (27-31); MCHC 33.3 g/dL (33-37); MCV 96.5 FL (81-99); MONO# 0.36 X1000 (0.11-0.59); MONO% 6.1 % (1.7-9.3); MPV 8.6 FL (7.4-10.4); NEUT% 76.9 % (42.2-75.2); PLT 135 X1000 (130-400); RBC 3.95 XMIL (4.7-6.1)
[2016-12-11 07:19] LABS: AGAP 11; ALBUMIN 3.1 g/dL (3.5-5.0); ALKALINE PHOSPHATASE 52 U/L (32-122); BUN 20 mg/dL (8-22); CALCIUM 8.9 mg/dL (8.8-10.2); CHLORIDE 97 mmol/L (98-107); COSMO 279; GOT 18 U/L (10-34); GPT 42 U/L (10-44); MAGNESIUM 2.1 mg/dL (1.5-2.7); POTASSIUM 3.5 mmol/L (3.5-5.1); SODIUM 138 mmol/L (136-145); TCO2 30 mmol/L (25-35); TOTAL BILIRUBIN 0.57 mg/dL (0.20-1.00); TOTAL PROTEIN 5.8 g/dL (6.3-8.3)
[2016-12-11 07:50] LABS: BANDS 12 % (0-1); LYMPHS 10 % (21-51); MONO 10 % (1-9); NRBC 1 % (0-0)
[2016-12-11] MEDS: SPIRIVA INH SCH (08:18)
[2016-12-11] MEDS: MUCOMYST 20% INH SCH ×2 (08:18→19:59)
[2016-12-11] MEDS: SYMBICORT 80/4.5 MICROGM INHALER INH SCH ×2 (08:18→20:00)
[2016-12-11] MEDS: LIALDA PO SCH (09:05)
[2016-12-11] MEDS: VITAMIN C PO SCH (09:05)
[2016-12-11] MEDS: CENTRUM SILVER PO SCH (09:05)
[2016-12-11] MEDS: PREDNISONE PO SCH (09:06)
--- NOTE | 2016-12-11 14:25 | PROGRESS NOTE ---
DATE: 12/11/2016 S: Pt has no complaints. O: AVSS PE: CV:RRR no m/g/r PULM: CTA-B GI: soft NT/ND BS:+ INR: 1.7 A/P: 1) COPD exacerbation - cont nebs, on oral steroids, nebs I feel he is improved Went in there to evaluate the patient. was upset about being discharged home. [place] he was not ready for discharge at this point. She said the sales assistant displays heard breath noises yesterday that he had not heard the day before although I would probably interpret that as his lungs were clearer than the day before 2) UC exacerbation, still with diarrhea but his CRP is normal His blood count has not dropped, 23 and 38, and has been normal since the . I do not think there is an acute indication for sustaining inpatient care related to the UC at this point. Will defer prednisone dosing to Dr. Rachel. 3) Hx PE - His INR is still not therapeutic and we will monitor I think we do need to adjust that. I think his breathing has improved and is certainly stable enough for discharge especially the fact that he is going to go home on 50 of prednisone but I am waiting for Dr. George to evaluate him. I anticipate discharge in next 24 hours hopefully if nothing else changes of course. There are no rehab options left. I think that is probably where a great deal of frustration is because patient is still very weak but he does not have any rehab options independent of outpatient physical therapy or home physical therapy. We will have to pursue these at time of discharge. cc: Eloy Howard MD MTDD
[2016-12-11] MEDS: COUMADIN PO SCH (21:35)
[2016-12-11] MEDS: DILAUDID PO PRN (22:20)
[2016-12-12] MEDS: ZOSYN 3.375 GM/NS 3.375 GM/50 ML IVPB IV SCH ×4 (02:33→21:39)
[2016-12-12] MEDS: DUONEB (A & A) INH SCH ×6 (03:50→22:46)
[2016-12-12] MEDS: SODIUM CHLORIDE 0.9% INJ SCH ×2 (05:17→16:29)
[2016-12-12] MEDS: PROTONIX IV SCH ×2 (05:17→16:29)
[2016-12-12] MEDS: SYNTHROID PO SCH (06:18)
[2016-12-12 06:51] LABS: BASO% 0.4 % (0.0-0.8); HEMATOCRIT 39.5 % (42.0-52.0); HEMOGLOBIN 13.1 g/dL (14.0-18.0); IMM GRAN# 0.37 X1000 (0.0-0.04); IMM GRAN% 6.6 % (0.0-0.5); LYMPH# 0.64 X1000 (1.2-3.4); LYMPH% 11.4 % (20.5-51.1); MANUAL DIFF NEEDED? YES; MCH 32.2 PG (27-31); MCHC 33.2 g/dL (33-37); MCV 97.1 FL (81-99); MONO# 0.32 X1000 (0.11-0.59); MONO% 5.7 % (1.7-9.3); MPV 9.1 FL (7.4-10.4); NEUT% 75.9 % (42.2-75.2); PLT 135 X1000 (130-400); RBC 4.07 XMIL (4.7-6.1)
[2016-12-12 06:52] LABS: INR 1.94; PROTIME 21.3 Seconds (9.2-11.7)
[2016-12-12] MEDS: HUMULIN R SUBQ SCH ×4 (06:59→21:37)
[2016-12-12 07:03] LABS: ALBUMIN 3.4 g/dL (3.5-5.0); CALCIUM 9.1 mg/dL (8.8-10.2); MAGNESIUM 2.1 mg/dL (1.5-2.7); POTASSIUM 3.6 mmol/L (3.5-5.1); TOTAL BILIRUBIN 0.55 mg/dL (0.20-1.00); TOTAL PROTEIN 6.4 g/dL (6.3-8.3)
[2016-12-12 07:11] LABS: BANDS 10 % (0-1); EOS 2 % (1-10); LYMPHS 8 % (21-51); MONO 2 % (1-9)
[2016-12-12] MEDS: SPIRIVA INH SCH (07:34)
[2016-12-12] MEDS: MUCOMYST 20% INH SCH ×2 (07:34→19:55)
[2016-12-12] MEDS: SYMBICORT 80/4.5 MICROGM INHALER INH SCH ×2 (07:34→19:55)
[2016-12-12] MEDS: CENTRUM SILVER PO SCH (08:20)
[2016-12-12] MEDS: VITAMIN D PO SCH (08:20)
[2016-12-12] MEDS: PREDNISONE PO SCH (08:20)
[2016-12-12] MEDS: LIALDA PO SCH (08:20)
[2016-12-12] MEDS: VITAMIN C PO SCH (08:20)
[2016-12-12] MEDS: LEVAQUIN 500 MG/D5W 500 MG/100 ML IVPB IV SCH (09:06)
[2016-12-12] MEDS: LOVENOX SUBQ SCH (11:35)
--- NOTE | 2016-12-12 12:44 | Diag Imaging Result Document ---
PROCEDURE NAME: CHEST-PORTABLE - 12/12/2016 PORTABLE CHEST: COMPARISON: 12/08/2016. FINDINGS: The lungs are well expanded. The heart is not enlarged. The vessels are not distended. No pleural effusions identified. The patient has a right sided Port A Catheter. No pneumothorax. Right hilar prominence has an appearance similar to that of the prior exam. IMPRESSION: Stable chest.
--- NOTE | 2016-12-12 14:03 | PROGRESS NOTE ---
DATE: 12/12/2016 SUBJECTIVE: The patient has no focal complaints. OBJECTIVE: Vital Signs: Blood pressure 138/82, heart rate 78, respiratory rate 20, temperature 97.2 degrees, and 96% on 2L. Cardiovascular: Regular rate and rhythm. Pulmonary: Bilateral breath sounds. Breath sounds were diminished at the bases. Clear to auscultation. Gastrointestinal: Soft, nontender, nondistended. Bowel sounds are positive. LABORATORY DATA: Chemistries looked good today. Creatinine 1.2. White count is normal. Hemoglobin and hematocrit 13 and 39, platelets 135,000. IMAGING: I am going to repeat his chest x-ray today. PROBLEM LIST: 1. Chronic obstructive pulmonary disease exacerbation. He is on oral steroids up to 50 mg. I think his breathing is improved. I am waiting on Pulmonary to clear him from a discharge standpoint. Dr. eGorge felt he had worsened and required more steroids, so we will follow. Dr. Haley is following today. 2. Ulcerative colitis exacerbation. He is on steroids and Lialda. He is still having some diarrhea, but overall is improved. Again his hemoglobin and hematocrit are stable. From this standpoint, I do not think he needs to be in the hospital, just from the ulcerative colitis standpoint. 3. History of pulmonary embolus. INR was supra- and then subtherapeutic. We will continue to follow. I have stopped his Lovenox because his INR is up to 1.9. Will see his level tomorrow. I think we should be able to discharge in the next 1-2 days, pending his clinical course. DISPOSITION: He is very weak, so he will end up having to go home. There are no rehabilitation options left. Family is aware of this and were updated. cc: Eloy Howard MD
[2016-12-12] MEDS: COUMADIN PO SCH (21:37)
[2016-12-12] MEDS: DILAUDID PO PRN (21:37)
[2016-12-13] MEDS: ZOSYN 3.375 GM/NS 3.375 GM/50 ML IVPB IV SCH ×4 (03:06→20:09)
[2016-12-13] MEDS: SODIUM CHLORIDE 0.9% INJ SCH (04:31)
[2016-12-13] MEDS: PROTONIX IV SCH (04:31)
[2016-12-13] MEDS: DUONEB (A & A) INH SCH ×6 (04:38→22:25)
[2016-12-13] MEDS: HUMULIN R SUBQ SCH ×4 (06:52→22:07)
[2016-12-13] MEDS: SYNTHROID PO SCH (06:52)
[2016-12-13 07:22] LABS: BASO% 0.4 % (0.0-0.8); EOS# 0.03 X1000 (0.0-0.7); EOS% 0.6 % (0.0-10.0); HEMATOCRIT 37.5 % (42.0-52.0); HEMOGLOBIN 12.6 g/dL (14.0-18.0); IMM GRAN# 0.35 X1000 (0.0-0.04); IMM GRAN% 6.7 % (0.0-0.5); LYMPH# 0.63 X1000 (1.2-3.4); LYMPH% 12.1 % (20.5-51.1); MANUAL DIFF NEEDED? YES; MCH 32.4 PG (27-31); MCHC 33.6 g/dL (33-37); MCV 96.4 FL (81-99); MONO% 5.8 % (1.7-9.3); MPV 9.2 FL (7.4-10.4); NEUT% 74.4 % (42.2-75.2); PLT 127 X1000 (130-400); RBC 3.89 XMIL (4.7-6.1)
[2016-12-13 07:29] LABS: INR 1.97; PROTIME 21.6 Seconds (9.2-11.7)
[2016-12-13 07:41] LABS: AGAP 10; ALBUMIN 3.3 g/dL (3.5-5.0); ALKALINE PHOSPHATASE 51 U/L (32-122); BUN 20 mg/dL (8-22); CALCIUM 8.8 mg/dL (8.8-10.2); CHLORIDE 98 mmol/L (98-107); COSMO 279; GOT 14 U/L (10-34); GPT 37 U/L (10-44); MAGNESIUM 2.1 mg/dL (1.5-2.7); POTASSIUM 3.4 mmol/L (3.5-5.1); SODIUM 139 mmol/L (136-145); TCO2 31 mmol/L (25-35); TOTAL BILIRUBIN 0.67 mg/dL (0.20-1.00); TOTAL PROTEIN 5.7 g/dL (6.3-8.3)
[2016-12-13] MEDS: MUCOMYST 20% INH SCH ×2 (07:44→19:57)
[2016-12-13] MEDS: SPIRIVA INH SCH (07:45)
[2016-12-13] MEDS: SYMBICORT 80/4.5 MICROGM INHALER INH SCH ×2 (07:45→19:57)
[2016-12-13 08:05] LABS: BANDS 2 % (0-1); LYMPHS 14 % (21-51); MONO 8 % (1-9); NRBC 1 % (0-0)
[2016-12-13] MEDS: VITAMIN C PO SCH (08:39)
[2016-12-13] MEDS: PREDNISONE PO SCH (08:39)
[2016-12-13] MEDS: LIALDA PO SCH (08:39)
[2016-12-13] MEDS: CENTRUM SILVER PO SCH (08:39)
[2016-12-13] MEDS: LEVAQUIN 500 MG/D5W 500 MG/100 ML IVPB IV SCH (09:27)
--- NOTE | 2016-12-13 15:01 | PROGRESS NOTE ---
DATE: 12/13/2016 SUBJECTIVE: Patient has no focal complaints. OBJECTIVE: Vital signs: Blood pressure was 138/92, heart rate of 94, respiratory rate 18, temperature was 97.6 degrees, 97% on room air. Cardiovascular: Regular rate and rhythm. Pulmonary: Bilateral breath sounds. Clear to auscultation. GI: Soft, nontender, nondistended. Bowel sounds are positive. LABORATORY DATA: White count is normal. Hemoglobin and hematocrit 12 and 37. Platelets are little low, 127, INR was 1.94. Potassium 3.4. PROBLEM LIST: 1. Chronic obstructive pulmonary disease exacerbation. He sounds fairly clear to me. He is on oral steroids, breathing treatments. Pulmonary is following. I am going to touch base with Dr. George tomorrow about transitioning to discharge. 2. Ulcerative colitis exacerbation. He is still having some diarrhea reportedly. Nothing has been recorded though. He had 1 bowel movement on the . He is already on prednisone and Lialda. I guess I will give him [address] Rachel will be back tomorrow to see how he does. 3. Hypothyroidism. Clinically very significant we will continue to monitor. 4. History of pulmonary embolus. His international normalized ratio is basically not quite therapeutic. It is 1.9, but we will continue to monitor that. 5. Disposition. Rehab is not an option for him so he will end up having going to go home. I think if things are stable, he could possibly go home tomorrow. We will continue to follow. cc: Eloy Howard MD
[2016-12-13] MEDS: DILAUDID PO PRN ×2 (15:08→22:07)
[2016-12-13] MEDS: COUMADIN PO SCH (20:09)
[2016-12-13] MEDS: PRILOSEC PO SCH (20:09)
[2016-12-13] MEDS: ROWASA ENEMA PR SCH ×2 (20:10→20:27)
[2016-12-14] MEDS: DUONEB (A & A) INH SCH ×3 (03:15→12:19)
[2016-12-14] MEDS: ZOSYN 3.375 GM/NS 3.375 GM/50 ML IVPB IV SCH ×2 (03:20→08:19)
[2016-12-14] MEDS: SYNTHROID PO SCH (06:47)
[2016-12-14] MEDS: HUMULIN R SUBQ SCH ×2 (06:53→11:18)
[2016-12-14 07:27] LABS: INR 2.01
[2016-12-14 07:29] LABS: BASO% 0.4 % (0.0-0.8); EOS# 0.02 X1000 (0.0-0.7); EOS% 0.4 % (0.0-10.0); HEMATOCRIT 37.1 % (42.0-52.0); HEMOGLOBIN 12.6 g/dL (14.0-18.0); IMM GRAN% 5.9 % (0.0-0.5); LYMPH# 0.46 X1000 (1.2-3.4); LYMPH% 9.1 % (20.5-51.1); MANUAL DIFF NEEDED? YES; MCH 32.7 PG (27-31); MCV 96.4 FL (81-99); MONO# 0.31 X1000 (0.11-0.59); MONO% 6.1 % (1.7-9.3); MPV 9.1 FL (7.4-10.4); NEUT% 78.1 % (42.2-75.2); PLT 128 X1000 (130-400); PROTIME 22.1 Seconds (9.2-11.7); RBC 3.85 XMIL (4.7-6.1)
[2016-12-14 07:31] VITALS: BP 146/82
[2016-12-14 07:40] LABS: AGAP 14; ALBUMIN 3.3 g/dL (3.5-5.0); ALKALINE PHOSPHATASE 52 U/L (32-122); BUN 19 mg/dL (8-22); CHLORIDE 97 mmol/L (98-107); COSMO 284; GOT 15 U/L (10-34); GPT 35 U/L (10-44); MAGNESIUM 2.2 mg/dL (1.5-2.7); POTASSIUM 3.5 mmol/L (3.5-5.1); SODIUM 141 mmol/L (136-145); TCO2 30 mmol/L (25-35); TOTAL BILIRUBIN 0.64 mg/dL (0.20-1.00); TOTAL PROTEIN 6.2 g/dL (6.3-8.3)
[2016-12-14 07:45] LABS: BANDS 6 % (0-1); LYMPHS 10 % (21-51); MONO 4 % (1-9)
[2016-12-14] MEDS: PRILOSEC PO SCH (08:08)
[2016-12-14] MEDS: VITAMIN C PO SCH (08:08)
[2016-12-14] MEDS: LIALDA PO SCH (08:08)
[2016-12-14] MEDS: CENTRUM SILVER PO SCH (08:08)
[2016-12-14] MEDS: LEVAQUIN 500 MG/D5W 500 MG/100 ML IVPB IV SCH (08:09)
[2016-12-14] MEDS: PREDNISONE PO SCH (08:18)
[2016-12-14] MEDS: SYMBICORT 80/4.5 MICROGM INHALER INH SCH (12:20)
[2016-12-14] MEDS: SPIRIVA INH SCH (12:20)
[2016-12-14] MEDS ORDERED: HEPARIN ONE (13:45)
--- NOTE | 2016-12-15 12:15 | DISCHARGE SUMMARY ---
ADMISSION DATE: 12/04/2016 DISCHARGE DATE: 12/14/2016 DISCHARGE DIAGNOSES: 1. Ulcerative colitis exacerbation. 2. Chronic obstructive pulmonary disease exacerbation with respiratory failure. 3. Hypothyroidism. 4. History of pulmonary embolus with coagulopathy. 5. Metastatic lung cancer with brain mets. CONSULTANTS: 1. Dr. Marko Mariano. 2. Dr. Abdoul George. 3. Dr. Tami Rachel. 4. Dr. Clay Riggs III. PROCEDURES: 1. Lumbar and thoracic MRI were completed which showed severe lumbar spondylosis, disk herniation at L4-L5. 2. Thoracic spine MRI showed thoracic spondylosis and right lower lobe pulmonary infiltrates. 3. Echocardiogram showed EF of 68% with left ventricular hypertrophy. HOSPITAL COURSE: Briefly, the patient was admitted, treated for the COPD exacerbation. He had significant weakness and hypothyroidism, but I think this was a known diagnosis prior to admission and had been managed. The patient was admitted, placed on IV steroids, breathing treatments. Dr. George had consulted and made some adjustments in medications. He had significant weakness of his lower extremities, which I think is what prompted a neurology consultation per Dr. Riggs. He felt that there may have been just neuropathy, Keytruda side-effect, hypothyroidism. He did not feel there was steroid induced myopathy. The patient did not have any major deficits in his legs, and Dr. Riggs felt that an EMG as an outpatient would be a possibility. The patient did have an elevated CRP and some bloody diarrhea during his course. He had been on a high-dose steroid taper as an outpatient and was maintained on Lialda and prednisone, and he clinically stabilized. He did have Pseudomonas grow out of his sputum culture for which he had been on Zosyn, and he was given Levaquin per Dr. George starting actually on 12/12/2016, and he is clinically improved. INR has come up a little bit. It had gotten as high as 4.8 and had to be adjusted, and it is a level 2 at discharge, and it is currently at 5 mg and seems to be doing okay. The patient did not have some COPD issues. Breathing had improved prior to discharge. Diarrhea also improved. We did end up starting some Rowasa enemas because he was having a little bit of diarrhea even on the high- dose steroids. On 12/14/2016, his saturations were 97% on 2 L. Vital signs were fine. Pulmonary exam was benign, and his diarrhea had resolved. DISCHARGE MEDICATIONS: Discharge medications, after discussion with Dr. George and Dr. Rachel, are as follows: 1. Vitamin C 1 g daily. 2. Vitamin D3 at 2000 units daily. 3. Nexium 40 daily. 4. Dilaudid p.r.n. 5. Levaquin 500 daily for 7 days. 6. Synthroid 100 daily. 7. Rowasa enema 4 g for 30 days. 8. Multivitamin daily. 9. Keytruda. That will be managed per Dr. Mariano. 10. Potassium 10 daily. 11. Prednisone will be 50 daily. She will taper down and follow up with Dr. Rachel. 12. Sucralfate 1 g q.6. 13. Warfarin 5 mg daily. FOLLOWUP: Follow up with Dr. Marko Mariano. I am assuming he is managing the INR. Will need to follow up with him within the week for INR check. Follow up with Dr. Tami Rachel in 2-4 weeks. Follow up with Dr. Abdoul George in 2-4 weeks. TIME SPENT: Greater than 32 minute discharge. cc: Eloy Howard MD
== END 2016-12-14 14:20 | disposition home health service (06) ==
LOC: SUATTDRO → ED 09:16 → SUATTDRO 15:04 → 3N 15:04
PROVIDERS: ATTEND Internal Medicine